=== PATIENT | male | born 1995 | race Caucasian/White ===

== ENCOUNTER 2017-06-20 17:42 | Emergency (ER) | payer SELFPAY ==
[2017-06-20 18:37] LABS: Absolute Lymphocytes (CBC) 2.4 K/uL (0.7-4.9); Absolute Monocytes 0.7 K/uL (0.1-1.3); Absolute Neutrophil 4.6 K/uL (1.8-8.0); Basophils % 1.2 % (0-1.3); Eosinophils % 0.8 % (0-4.4); Hematocrit 47.3 % (39.6-49.0); Lymphocytes % 30.6 % (15.3-44.8); MCH 28.7 pg (27.0-35.0); MCV 86.9 fL (80-100); Monocytes % 8.5 % (3.3-12.3); RBC Red Blood Cell Count 5.44 M/uL (4.33-5.43)
[2017-06-20 18:50] LABS: Bicarbonate 29 mEq/L (21-31); Glucose Level 92 mg/dL (65-120); Potassium 3.8 mEq/L (3.6-5.0); Sodium Level 141 mEq/L (135-145)
[2017-06-20 18:52] LABS: Protime INR 1.11
[2017-06-20 18:56] LABS: ALT/SGPT 11 IU/L (10-60); AST/SGOT 15 IU/L (10-42); Albumin 4.9 g/dL (3.2-5.5); Alkaline Phosphatase 66 IU/L (42-121); BUN Blood Urea Nitrogen 10 mg/dL (6-20); Bilirubin Direct 0.1 mg/dL (0-0.2); Bilirubin Total 0.5 mg/dL (0.3-1.2); Glomerular Filtration Rate > 90 mL/min (=/>90)
[2017-06-20 18:57] LABS: Alcohol Serum/Plasma < 10 mg/dl; Salicylates Level < 4.0 mg/dl (<30)
[2017-06-20 19:37] LABS: Urine Blood NEGATIVE (NEG); Urine Glucose NEGATIVE (NEG); Urine Protein 1+ (NEG); Urine Specific Gravity >1.030 (1.005-1.030)
[2017-06-20 19:48] LABS: Barbiturates NEGATIVE; Benzodiazepines NEGATIVE; Cocaine NEGATIVE; METHAMPHETAM NEGATIVE; Opiates NEGATIVE; Phencyclidine NEGATIVE; THC Cannibis POSITIVE
[2017-06-20] MEDS ORDERED: NICOTINE 21 MG/PAT TD ONE (21:15)
--- NOTE | 2017-06-20 23:06 | ER ---
Nurse's Notes [facility] Name: Krzysztof Palomino Age: 21 yrs Sex: Male : 1995 Arrival Date: 06/20/2017 Time: 17:44 Bed 5 Private MD: Diagnosis: Depression Presentation: 06/20 17:48 Presenting complaint: Patient states: I think I have been having manic episodes, mother la1 states that he is having thoughts that we are all conspiring against him. Pt denies SI/HI. Transition of care: patient was not received from another setting of care. Onset of symptoms was June 20, 2017. Care prior to arrival: None. 17:48 Method Of Arrival: Ambulatory la1 17:48 Acuity: JERAMY 3 la1 Historical: - Allergies: 17:50 BEE STINGS; la1 - Home Meds: 17:50 Zyrtec 10 mg Oral tab 1 tab once daily [Active]; la1 - PMHx: 17:50 ADD/ADHD; la1 - PSHx: 17:50 None; la1 - Immunization history:: Adult Immunizations up to date. - Social history:: Smoking status: Patient uses tobacco products, smokes two packs cigarettes per day. Screenin:32 Abuse screen: Denies threats or abuse. Denies injuries from another. Nutritional sv screening: No deficits noted. Tuberculosis screening: No symptoms or risk factors identified. Fall Risk None identified. Assessment: 18:10 General: Appears in no apparent distress. comfortable, well groomed, well developed, sg well nourished, Behavior is cooperative, anxious. Pain: Denies pain. Neuro: Level of Consciousness is awake, alert, obeys commands, Oriented to person, place, time, Station Inspector are equal bilaterally Moves all extremities. Gait is steady, Speech is normal, Facial symmetry appears normal, Pupils are PERRLA. Neuro: Reports episodes of eugenia per pt and pt family. Cardiovascular: Heart tones S1 S2 present Capillary refill is brisk in bilateral fingers Patient's skin is warm and dry. Respiratory: Airway is patent Respiratory effort is even, unlabored, Respiratory pattern is regular, symmetrical. GI: No signs and/or symptoms were reported involving the gastrointestinal system. : No signs and/or symptoms were reported regarding the genitourinary system. EENT: No signs and/or symptoms were reported regarding the EENT system. Derm: Skin is pink, warm \T\ dry. Musculoskeletal: No signs and/or symptoms reported regarding the musculoskeletal system. 19:23 Reassessment: Patient appears in no apparent distress at this time. No changes from ak1 previously documented assessment. Patient is alert, oriented x 3, equal unlabored respirations, skin warm/dry/pink. pt given water and is giving a urine sample. 20:00 Reassessment: [facility] called out for pt evaluation. . ak1 20:59 Reassessment: nicotine patch applied to right upper arm at 205406/20/17. ak1 22:49 Reassessment: [facility] screener at bedside. ak1 Vital Signs: 17:49 BP 121 / 74; Pulse 72; Resp 16; Temp 98.3; Pulse Ox 100% on R/A; Weight 54.43 kg; la1 Height 6 ft. 0 in. (182.88 cm); 23:01 BP 123 / 62; Pulse 90; Resp 18; Temp 97.8; Pulse Ox 100% on R/A; Pain 0/10; ak1 17:49 Body Mass Index 16.27 (54.43 kg, 182.88 cm) la1 ED Course: 17:44 Patient arrived in ED. as 17:49 Triage completed. la1 17:50 Arm band placed on right wrist. la1 17:53 Nils Black PA is PHCP. cp 17:53 Catrachito Kaplan MD is Attending Physician. cp 17:55 Aries Nagel, HERIBERTO is Primary Nurse. sg 18:20 Initial lab(s) drawn, by ok, sent to lab. Inserted saline lock: 20 gauge in right sv antecubital area, using aseptic technique. Blood collected. Flushed right antecubital with 5 ml normal saline. 18:32 Patient has correct armband on for positive identification. Bed in low position. Call sv light in reach. Adult w/ patient. Door closed. Head of bed elevated. 18:39 EKG done, by ED staff, reviewed by Nils MORE. dh3 18:40 Acetaminophen Sent. sv 18:40 Basic Metabolic Panel Sent. sv 18:40 CBC with Diff Sent. sv 18:40 ETOH Level Sent. sv 18:40 Hepatic Function Sent. sv 18:40 PT-INR Sent. sv 18:40 Ptt, Activated Sent. sv 18:40 Salicylate Sent. sv 19:07 Reagan Son MD is Attending Physician. 19:23 Chloe Thornton, RN is Primary Nurse. ak1 19:23 No provider procedures requiring assistance completed. ak1 19:34 Urine Drug Screen Sent. ak1 23:11 IV discontinued, intact, bleeding controlled, No redness/swelling at site. Pressure ak1 dressing applied. Administered Medications: 20:58 Drug: Nicoderm CQ 21 mg/24 hr 1 patches Route: Transdermal; Site: affected area; ak1 Outcome: 23:01 Condition: improved ak1 23:05 Discharge ordered by . cp 23:11 Discharged to home ambulatory, with family. ak1 23:11 Discharge instructions given to patient, family, Instructed on discharge instructions, follow up and referral plans. Demonstrated understanding of instructions, follow-up care. 23:15 Patient left the ED. Signatures: Clarissa Vang RN RN Aries Nagel RN RN Daniela Ellis RN RN Heavenly Winters Lee, RN RN laChloe Chatman RN RN ak1 Nils Black PA PA cp [place], [place] [address]
--- NOTE | 2017-06-20 23:06 | EDPHYS ---
Physician Documentation [facility] Name: Krzysztof Palomino Age: 21 yrs Sex: Male : 1995 Arrival Date: 06/20/2017 Time: 17:44 Bed 5 Private MD: ED Physician Reagan Son HPI: 06/20 18:15 This 21 yrs old Male presents to ER via Ambulatory with complaints of Bipolar cp Episode. 18:15 The patient presents to the emergency department with paranoia. cp 18:15 Onset: The symptoms/episode began/occurred 2 day(s) ago. cp 18:15 Past psychiatric history: Prior diagnosis: ADD/ADHD. Associated signs and symptoms: cp Pertinent positives; depression, paranoia, Pertinent negatives: chest pain, delusions, fever, hallucinations, homicidal ideation, palpitations, substance abuse, suicide ideation. Historical: - Allergies: 17:50 BEE STINGS; la1 - Home Meds: 17:50 Zyrtec 10 mg Oral tab 1 tab once daily [Active]; la1 - PMHx: 17:50 ADD/ADHD; la1 - PSHx: 17:50 None; la1 - Immunization history:: Adult Immunizations up to date. - Social history:: Smoking status: Patient uses tobacco products, smokes two packs cigarettes per day. ROS: 18:20 Constitutional: Negative for body aches, chills, fever, poor PO intake. cp 18:20 Eyes: Negative for injury, pain, redness, and discharge. cp 18:20 ENT: Negative for drainage from ear(s), ear pain, sore throat, difficulty swallowing, difficulty handling secretions. 18:20 Cardiovascular: Negative for chest pain, edema, palpitations. 18:20 Respiratory: Negative for cough, shortness of breath, wheezing. 18:20 Abdomen/GI: Negative for abdominal pain, nausea, vomiting, and diarrhea, black/tarry stool, rectal bleeding. 18:20 Neuro: Negative for altered mental status, headache, weakness. 18:20 Psych: Positive for depression, Negative for auditory hallucinations, visual hallucinations, homicidal ideation, suicide gesture, suicidal ideation. 18:20 All other systems are negative. Exam: 18:30 Constitutional: The patient appears in no acute distress, alert, awake, non-toxic, well cp developed, well nourished, unkempt. 18:30 Head/Face: Normocephalic, atraumatic. Eyes: Pupils equal round and reactive to light, cp extra-ocular motions intact. Lids and lashes normal. Conjunctiva and sclera are non-icteric and not injected. Cornea within normal limits. Periorbital areas with no swelling, redness, or edema. ENT: Nares patent. No nasal discharge, no septal abnormalities noted. Tympanic membranes are normal and external auditory canals are clear. Oropharynx with no redness, swelling, or masses, exudates, or evidence of obstruction, uvula midline. Mucous membranes moist. Neck: Trachea midline, no thyromegaly or masses palpated, and no cervical lymphadenopathy. Supple, full range of motion without nuchal rigidity, or vertebral point tenderness. No Meningismus. Chest/axilla: Normal chest wall appearance and motion. Nontender with no deformity. No lesions are appreciated. 18:30 Cardiovascular: Rate: normal, Rhythm: regular, Heart sounds: murmur, not appreciated, Edema: is not appreciated, JVD: is not appreciated. 18:30 Respiratory: the patient does not display signs of respiratory distress, Respirations: normal, no use of accessory muscles, no retractions, no splinting, no tachypnea, labored breathing, is not present, Breath sounds: are clear throughout, no decreased breath sounds, no stridor, no wheezing. 18:30 Abdomen/GI: Inspection: abdomen appears normal, Bowel sounds: active, all quadrants, Palpation: abdomen is soft and non-tender, in all quadrants. 18:30 Back: pain, is absent, ROM is normal. 18:30 Skin: cellulitis, is not appreciated, no rash present. 18:30 Neuro: Orientation: to person, place \T\ time. Mentation: is normal, Cerebellar function: is grossly normal, Motor: moves all fours, strength is normal, Sensation: is normal. 18:30 Psych: Behavior/mood is angry, Affect is animated, Patient has no thoughts/intents to harm self or others. Delusions/hallucinations are not present. 18:36 ECG was reviewed by the Attending Physician. cp Vital Signs: 17:49 BP 121 / 74; Pulse 72; Resp 16; Temp 98.3; Pulse Ox 100% on R/A; Weight 54.43 kg; la1 Height 6 ft. 0 in. (182.88 cm); 23:01 BP 123 / 62; Pulse 90; Resp 18; Temp 97.8; Pulse Ox 100% on R/A; Pain 0/10; ak1 17:49 Body Mass Index 16.27 (54.43 kg, 182.88 cm) la1 MDM: 17:53 Patient medically screened. cp 18:00 Differential diagnosis: drug withdrawal. acute psychotic break, depression, psychosis cp secondary to non-compliance. 23:03 Data reviewed: vital signs, nurses notes, lab test result(s), EKG, and as a result, I cp will discharge patient. 23:03 Counseling: I had a detailed discussion with the patient and/or guardian regarding: the cp historical points, exam findings, and any diagnostic results supporting the discharge/admit diagnosis, the need for outpatient follow up, a psychiatrist, to return to the emergency department if symptoms worsen or persist or if there are any questions or concerns that arise at home. ED course: VSS. Patient evaluated by [facility] and felt to be stable for discharge to home with outpatient clinic f/u. 06/20 18:14 Order name: Acetaminophen cp 06/20 18:14 Order name: Basic Metabolic Panel cp 06/20 18:14 Order name: CBC with Diff cp 06/20 18:14 Order name: ETOH Level cp 06/20 18:14 Order name: Hepatic Function cp 06/20 18:14 Order name: PT-INR cp 06/20 18:14 Order name: Ptt, Activated cp 06/20 18:14 Order name: Salicylate cp 06/20 18:14 Order name: Urine Drug Screen cp 06/20 18:46 Order name: CBC with Automated Diff; Complete Time: 19:06 EDMS 06/20 19:06 Interpretation: Normal except: RBC 5.44; RDW 15.3. cp 06/20 18:50 Order name: Basic Metabolic Panel; Complete Time: 19:06 EDMS 06/20 19:06 Interpretation: Reviewed. cp 06/20 18:57 Order name: Liver (Hepatic) Function; Complete Time: 19:06 EDMS 06/20 19:07 Interpretation: Within normal limits. cp 06/20 18:57 Order name: Acetaminophen Level; Complete Time: 19:06 EDMS 06/20 19:06 Interpretation: Reviewed. cp 06/20 18:57 Order name: Alcohol Serum/Plasma; Complete Time: 19:06 EDMS 06/20 18:14 Order name: EKG; Complete Time: 18:15 cp 06/20 18:14 Order name: EKG - Nurse/Tech; Complete Time: 18:29 06/20 18:14 Order name: IV Saline Lock; Complete Time: 18:29 06/20 18:14 Order name: Labs collected and sent; Complete Time: 18:29 06/20 18:14 Order name: Urine Dipstick-Ancillary (obtain specimen); Complete Time: 19:34 06/20 18:57 Order name: Salicylates Level; Complete Time: 19:06 EDMS 06/20 18:58 Order name: Protime (+INR); Complete Time: 19:06 EDMS 06/20 19:06 Interpretation: Abnormal: PT 13.1. 06/20 18:59 Order name: PTT, Activated Partial Thromb; Complete Time: 19:06 EDMS 06/20 19:35 Order name: Urine Dipstick--Ancillary (enter results) em1 06/20 19:38 Order name: Urine Dipstick-Ancillary; Complete Time: 20:52 EDMS 06/20 20:52 Interpretation: Normal except: USPGR >1.030; UPROT 1+. 06/20 19:48 Order name: Urine Drug Screen; Complete Time: 20:52 EDMS 06/20 20:52 Interpretation: Normal except: THC POSITIVE. cp EC:36 Rate is 54 beats/min. Rhythm is regular. OR interval is normal. QRS interval is normal. cp QT interval is normal. No ST changes noted. Interpreted by me. Reviewed by me. Administered Medications: 20:58 Drug: Nicoderm CQ 21 mg/24 hr 1 patches Route: Transdermal; Site: affected area; ak1 Disposition: 06/20/17 23:05 Discharged to Home. Impression: Depression. - Condition is Stable. - Discharge Instructions: Depression, Adult. - Work release form, Medication Reconciliation Form, Thank You Letter, Antibiotic Education, Prescription Opioid Use form. - Follow up: Private Physician; When: [facility] for reevaluation; Reason: Recheck today's complaints. - Problem is new. - Symptoms are unchanged. Addendum: 06/24/2017 07:07 Co-signature as Attending Physician, Reagan Son MD I agree with the assessment and w a plan of care. Signatures: Dispatcher [employer] Daniela Maria RN RN fc Attema, Lee, RN RN la1 Chloe Thornton RN RN ak1 Nils Black, Reagan Sanz cp, MD MD wa
--- NOTE | 2017-06-21 07:23 | EKG ---
Test Date: 2017-06-20 Test Time: 18:30:17 Adjunct Faculty Mathematics Department: [facility] MEASUREMENT RESULTS: Intervals: Rate: 54 WV: 130 QRSD: 82 QT: 392 QTc: 371 Crosby: P: 56 WV: 130 QRS: 91 T: 75 INTERPRETIVE STATEMENTS: Sinus bradycardia with sinus arrhythmia Rightward axis Borderline ECG Compared to ECG 01/17/2017 20:52:04 Sinus rhythm no longer present Electronically Signed On 06-21-17 07:21:53 CDT by Julian Reyes
== END 2017-06-20 23:15 | disposition home or self-care (01) ==
LOC: ER 17:42
DX: F32.9 Major depressive disorder, single episode, unspecified (principal); F90.9 Attention-deficit hyperactivity disorder, unspecified type; F17.210 Nicotine dependence, cigarettes, uncomplicated; Z91.030 Bee allergy status
CPT/HCPCS: 36415; 80048; 80076; 80307; 80320; 80329; 81003; 85025; 85610; 85730; 93005; 99284

== ENCOUNTER 2017-06-21 07:30 | Emergency (ER) | payer SELFPAY ==
--- NOTE | 2017-06-21 08:07 | EDPHYS ---
Physician Documentation [facility] Name: Krzysztof Palomino Age: 21 yrs Sex: Male : 1995 Arrival Date: 06/21/2017 Time: 07:30 Bed 5 Private MD: ED Physician Nils Bingham HPI: 06/21 07:56 This 21 yrs old Male presents to ER via Ambulatory with complaints of michelle Hallucinations, Anxiety. 07:56 The patient presents to the emergency department with anxiety, paranoia, a history of michelle substance abuse, Type: marijuana. Onset: The symptoms/episode began/occurred 2 day(s) ago. Past psychiatric history: Prior diagnosis: bipolar disorder, Psychiatric medications include: none. Associated signs and symptoms: The patient has no apparent associated signs or symptoms. Severity of symptoms: At their worst the symptoms were mild in the emergency department the symptoms are unchanged. The patient has not experienced similar symptoms in the past. no diagnosis. Historical: - Allergies: 07:36 BEE STINGS; ss - Home Meds: 07:36 Zyrtec 10 mg Oral tab 1 tab once daily [Active]; ss - PMHx: 07:36 ADD/ADHD; ss - PSHx: 07:36 None; ss - Immunization history:: Adult Immunizations up to date. - Social history:: Smoking status: Patient uses tobacco products, smokes two packs cigarettes per day. Patient/guardian denies using alcohol, street drugs. - Family history:: not pertinent. ROS: 07:56 Constitutional: Negative for fever, chills, and weight loss, Eyes: Negative for injury, michelle pain, redness, and discharge, ENT: Negative for injury, pain, and discharge, Neck: Negative for injury, pain, and swelling, Cardiovascular: Negative for chest pain, palpitations, and edema, Respiratory: Negative for shortness of breath, cough, wheezing, and pleuritic chest pain, Abdomen/GI: Negative for abdominal pain, nausea, vomiting, diarrhea, and constipation, Back: Negative for injury and pain, : Negative for injury, bleeding, discharge, and swelling, MS/Extremity: Negative for injury and deformity, Skin: Negative for injury, rash, and discoloration, Neuro: Negative for headache, weakness, numbness, tingling, and seizure. Exam: 07:56 Constitutional: This is a well developed, well nourished patient who is awake, alert, michelle and in no acute distress. Head/Face: Normocephalic, atraumatic. Eyes: Pupils equal round and reactive to light, extra-ocular motions intact. Lids and lashes normal. Conjunctiva and sclera are non-icteric and not injected. Cornea within normal limits. Periorbital areas with no swelling, redness, or edema. ENT: Nares patent. No nasal discharge, no septal abnormalities noted. Tympanic membranes are normal and external auditory canals are clear. Oropharynx with no redness, swelling, or masses, exudates, or evidence of obstruction, uvula midline. Mucous membranes moist. Neck: Trachea midline, no thyromegaly or masses palpated, and no cervical lymphadenopathy. Supple, full range of motion without nuchal rigidity, or vertebral point tenderness. No Meningismus. Chest/axilla: Normal chest wall appearance and motion. Nontender with no deformity. No lesions are appreciated. Cardiovascular: Regular rate and rhythm with a normal S1 and S2. No gallops, murmurs, or rubs. Normal PMI, no JVD. No pulse deficits. Respiratory: Lungs have equal breath sounds bilaterally, clear to auscultation and percussion. No rales, rhonchi or wheezes noted. No increased work of breathing, no retractions or nasal flaring. Abdomen/GI: Soft, non-tender, with normal bowel sounds. No distension or tympany. No guarding or rebound. No evidence of tenderness throughout. Back: No spinal tenderness. No costovertebral tenderness. Full range of motion. Male : Normal genitalia with no discharge or lesions. Skin: Warm, dry with normal turgor. Normal color with no rashes, no lesions, and no evidence of cellulitis. MS/ Extremity: Pulses equal, no cyanosis. Neurovascular intact. Full, normal range of motion. Neuro: Awake and alert, GCS 15, oriented to person, place, time, and situation. Cranial nerves II-XII grossly intact. Motor strength 5/5 in all extremities. Sensory grossly intact. Cerebellar exam normal. Normal gait. Vital Signs: 07:36 BP 117 / 80; Pulse 70; Resp 20; Pulse Ox 98% on R/A; Weight 54.43 kg; Height 6 ft. 0 ss in. (182.88 cm); Pain 0/10; 07:40 Temp 98.1(TE); ss 07:36 Body Mass Index 16.27 (54.43 kg, 182.88 cm) MDM: 07:39 Patient medically screened. [facility] 06/21 07:45 Order name: EKG; Complete Time: 07:46 michelle Administered Medications: 08:08 CANCELLED (per Dr. Bingham): NS 0.9% 1000 ml IV at 1 bolus Per protocol; 1000 mL bolus ph 08:54 Drug: Nicoderm CQ 21 mg/24 hr 1 patches Route: Transdermal; Site: affected area; hb 09:30 Drug: Ativan 2 mg Route: PO; ss 09:45 Follow up: Response: No adverse reaction hb Disposition: 06/21/17 08:06 Transfer ordered to [facility]. Diagnosis are Bipolar disorder, Suicidal ideations. - Reason for transfer: Higher level of care. - Accepting physician is to [facility]. - Condition is Stable. - Problem is new. - Symptoms have improved. Signatures: Dispatcher [employer] EDAK Nils Bingham MD MD cha Smirch, Shelby, RN RN Teri Holcomb RN RN ph Sudha Read, RN RN hb Corrections: (The following items were deleted from the chart) 08:08 07:45 NS 0.9% 1000 ml IV at 1 bolus Per protocol; 1000 mL bolus ordered. michelle ph 08:08 08:08 NS 0.9% 1000 ml IV at 1 bolus Per protocol; 1000 mL bolus ordered. ph ph 08:10 07:45 EKG - Nurse/Tech ordered. [facility] ph 08:11 07:45 IV Saline Lock ordered. [facility] ph 08:11 07:45 Labs collected and sent ordered. [facility] ph 08:11 07:45 Urine Dipstick-Ancillary ordered. [facility] ph
--- NOTE | 2017-06-21 08:07 | ER ---
Nurse's Notes [facility] Name: Krzysztof Palomino Age: 21 yrs Sex: Male : 1995 Arrival Date: 06/21/2017 Time: 07:30 Bed 5 Private MD: Diagnosis: Bipolar disorder;Suicidal ideations Presentation: 06/21 07:34 Presenting complaint: Mother states: "his delusions have gotten worse and he is having ss hallucinations and he wants us to hurt him." Pt reports suicidal ideations. Transition of care: patient was not received from another setting of care. Onset of symptoms was June 18, 2017. Care prior to arrival: None. 07:34 Method Of Arrival: Ambulatory ss 07:34 Acuity: JERAMY 2 ss Historical: - Allergies: 07:36 BEE STINGS; ss - Home Meds: 07:36 Zyrtec 10 mg Oral tab 1 tab once daily [Active]; ss - PMHx: 07:36 ADD/ADHD; ss - PSHx: 07:36 None; ss - Immunization history:: Adult Immunizations up to date. - Social history:: Smoking status: Patient uses tobacco products, smokes two packs cigarettes per day. Patient/guardian denies using alcohol, street drugs. - Family history:: not pertinent. Screenin:11 Abuse screen: Denies threats or abuse. Denies injuries from another. Nutritional ph screening: No deficits noted. Tuberculosis screening: No symptoms or risk factors identified. Fall Risk None identified. Assessment: 07:38 Reassessment: When asked if he has a plan to hurt himself, pt states, "Just waiting on ss whatever kills me pretty much. Probably cigarettes.". 08:11 General: Appears in no apparent distress. Behavior is calm, cooperative. Pain: Denies ph pain. Neuro: Level of Consciousness is awake, alert, obeys commands, Oriented to person, place, time, situation, Pupils are PERRLA. Cardiovascular: Capillary refill < 3 seconds Patient's skin is warm and dry. Respiratory: Airway is patent Respiratory effort is even, unlabored, Respiratory pattern is regular, symmetrical, Breath sounds are clear bilaterally. GI: No signs and/or symptoms were reported involving the gastrointestinal system. : No signs and/or symptoms were reported regarding the genitourinary system. EENT: No signs and/or symptoms were reported regarding the EENT system. Derm: No signs and/or symptoms reported regarding the dermatologic system. Musculoskeletal: No signs and/or symptoms reported regarding the musculoskeletal system. 08:24 Reassessment: Report called to HERIBERTO Mittal at [facility]. hb Vital Signs: 07:36 BP 117 / 80; Pulse 70; Resp 20; Pulse Ox 98% on R/A; Weight 54.43 kg; Height 6 ft. 0 ss in. (182.88 cm); Pain 0/10; 07:40 Temp 98.1(TE); ss 07:36 Body Mass Index 16.27 (54.43 kg, 182.88 cm) ED Course: 07:30 Patient arrived in ED. as 07:35 Triage completed. ss 07:36 Arm band placed on right wrist. ss 07:39 Nils Bingham MD is Attending Physician. [facility] 07:45 Patient has correct armband on for positive identification. Bed in low position. Call hb light in reach. Side rails up X 1. Adult w/ patient. 08:30 Sudha Read, HERIBERTO is Primary Nurse. hb 09:40 No provider procedures requiring assistance completed. Patient did not have IV access hb during this emergency room visit. Administered Medications: 08:08 CANCELLED (per Dr. Bingham): NS 0.9% 1000 ml IV at 1 bolus Per protocol; 1000 mL bolus ph 08:54 Drug: Nicoderm CQ 21 mg/24 hr 1 patches Route: Transdermal; Site: affected area; hb 09:30 Drug: Ativan 2 mg Route: PO; ss 09:45 Follow up: Response: No adverse reaction hb Outcome: 08:06 ER care complete, transfer ordered by . [facility] 09:40 Transferred to [facility]. hb 09:40 Condition: stable 09:40 Instructed on the need for transfer, Demonstrated understanding of instructions. 09:43 Patient left the ED. hb Signatures: Nils Bingham MD MD cha Martinez, Amelia as Smirch, Shelby, RN RN Teri Holcomb RN RN ph Sudha Read RN RN hb
[2017-06-21] MEDS ORDERED: NA CHLORIDE 0.9% 1,000 ML ONE (08:11)
[2017-06-21] MEDS ORDERED: NICOTINE 21 MG/PAT TD ONE (09:11)
[2017-06-21] MEDS ORDERED: LORAZEPAM 1 MG TABLET ONE (09:48)
== END 2017-06-21 09:43 | disposition short-term general hospital (02) ==
LOC: ER 07:30
DX: R45.851 Suicidal ideations (principal); Z91.030 Bee allergy status; F17.210 Nicotine dependence, cigarettes, uncomplicated
CPT/HCPCS: 99285; J7030

== ENCOUNTER 2017-06-27 14:17 | Emergency (ER) | payer SELFPAY ==
[2017-06-27 15:20] LABS: Absolute Lymphocytes (CBC) 2.5 K/uL (0.7-4.9); Absolute Monocytes 0.5 K/uL (0.1-1.3); Absolute Neutrophil 3.7 K/uL (1.8-8.0); Basophils % 0.8 % (0-1.3); Eosinophils % 0.7 % (0-4.4); Hematocrit 43.9 % (39.6-49.0); Lymphocytes % 36.5 % (15.3-44.8); MCH 28.4 pg (27.0-35.0); MCV 87.3 fL (80-100); Monocytes % 7.6 % (3.3-12.3); RBC Red Blood Cell Count 5.03 M/uL (4.33-5.43)
[2017-06-27 15:24] LABS: Protime INR 1.07
[2017-06-27 15:28] LABS: Bicarbonate 27 mEq/L (21-31); Glucose Level 100 mg/dL (65-120); Potassium 3.7 mEq/L (3.6-5.0); Sodium Level 139 mEq/L (135-145)
[2017-06-27 15:34] LABS: ALT/SGPT 11 IU/L (10-60); AST/SGOT 15 IU/L (10-42); Albumin 4.4 g/dL (3.2-5.5); Alkaline Phosphatase 55 IU/L (42-121); BUN Blood Urea Nitrogen 17 mg/dL (6-20); Bilirubin Direct 0.1 mg/dL (0-0.2); Bilirubin Total 0.6 mg/dL (0.3-1.2); Glomerular Filtration Rate > 90 mL/min (=/>90); Protein, Total 7.1 g/dL (6.0-8.3)
[2017-06-27 15:43] LABS: Alcohol Serum/Plasma < 10 mg/dl; Salicylates Level < 4.0 mg/dl (<30)
[2017-06-27 15:44] LABS: Urine Blood NEGATIVE (NEG); Urine Glucose NEGATIVE (NEG); Urine Protein NEGATIVE (NEG); Urine Specific Gravity 1.025 (1.005-1.030)
[2017-06-27 15:46] LABS: Barbiturates NEGATIVE; Benzodiazepines NEGATIVE; Cocaine NEGATIVE; METHAMPHETAM NEGATIVE; Opiates NEGATIVE; Phencyclidine NEGATIVE; THC Cannibis POSITIVE
--- NOTE | 2017-06-27 18:16 | EDPHYS ---
Physician Documentation [facility] Name: Krzysztof Palomino Age: 21 yrs Sex: Male : 1995 Arrival Date: 06/27/2017 Time: 14:20 Bed 17 Private MD: ED Physician Severo Brown HPI: 06/27 16:28 This 21 yrs old Male presents to ER via Ambulatory with complaints of Psych jr8 Problem. 16:28 Onset: The symptoms/episode began/occurred gradually. Associated signs and symptoms: jr8 The patient has no apparent associated signs or symptoms. Severity of symptoms: At their worst the symptoms were moderate. The patient has experienced a previous episode. The patient has been recently seen by a physician:. Mother of patient stated that child has for some time had multiple suicide attempts in past. Has been depressed as well. Recently over the past week was having large mood swings. Stated that he would be in position crying one moment and then up and yelling the next. Stated that he had never been this bad before. Stated that he was brought here. Medically cleared and then [facility] to [facility]. [facility] on [facility] from [facility] with zyprexa and depakote. Mom brought patient back because he is not any better. Patient denies SI/HI. Historical: - Allergies: 14:34 BEE STINGS; hb - Home Meds: 14:34 Depakote 500 mg Oral TbEC 1 tab 2 times per day [Active]; Zyrtec 10 mg Oral tab 1 tab hb once daily [Active]; olanzapine 10 mg oral tab 1 tab once daily [Active]; - PMHx: 14:34 ADD/ADHD; Bipolar disorder; hb - PSHx: 14:34 None; hb - Immunization history:: Adult Immunizations up to date. - Social history:: Smoking status: Patient uses tobacco products, smokes two packs cigarettes per day. ROS: 16:31 Eyes: Negative for injury, pain, redness, and discharge, ENT: Negative for injury, jr8 pain, and discharge, Neck: Negative for injury, pain, and swelling, Cardiovascular: Negative for chest pain, palpitations, and edema, Respiratory: Negative for shortness of breath, cough, wheezing, and pleuritic chest pain, Abdomen/GI: Negative for abdominal pain, nausea, vomiting, diarrhea, and constipation, Back: Negative for injury and pain, MS/Extremity: Negative for injury and deformity, Skin: Negative for injury, rash, and discoloration, Neuro: Negative for headache, weakness, numbness, tingling, and seizure. 16:31 Psych: Positive for depression, Negative for auditory hallucinations, visual hallucinations, homicidal ideation, suicide gesture, suicidal ideation. Exam: 16:31 Head/Face: Normocephalic, atraumatic. Eyes: Pupils equal round and reactive to light, jr8 extra-ocular motions intact. Lids and lashes normal. Conjunctiva and sclera are non-icteric and not injected. Cornea within normal limits. Periorbital areas with no swelling, redness, or edema. ENT: Nares patent. No nasal discharge, no septal abnormalities noted. Tympanic membranes are normal and external auditory canals are clear. Oropharynx with no redness, swelling, or masses, exudates, or evidence of obstruction, uvula midline. Mucous membranes moist. Neck: Trachea midline, no thyromegaly or masses palpated, and no cervical lymphadenopathy. Supple, full range of motion without nuchal rigidity, or vertebral point tenderness. No Meningismus. Cardiovascular: Regular rate and rhythm with a normal S1 and S2. No gallops, murmurs, or rubs. Normal PMI, no JVD. No pulse deficits. Respiratory: Lungs have equal breath sounds bilaterally, clear to auscultation and percussion. No rales, rhonchi or wheezes noted. No increased work of breathing, no retractions or nasal flaring. Abdomen/GI: Soft, non-tender, with normal bowel sounds. No distension or tympany. No guarding or rebound. No evidence of tenderness throughout. Back: No spinal tenderness. No costovertebral tenderness. Full range of motion. Skin: Warm, dry with normal turgor. Normal color with no rashes, no lesions, and no evidence of cellulitis. MS/ Extremity: Pulses equal, no cyanosis. Neurovascular intact. Full, normal range of motion. Neuro: Awake and alert, GCS 15, oriented to person, place, time, and situation. Cranial nerves II-XII grossly intact. Motor strength 5/5 in all extremities. Sensory grossly intact. Cerebellar exam normal. Normal gait. 16:31 Psych: Behavior/mood is depressed, Affect is flat, Oriented to person, place, time, Patient has no thoughts/intents to harm self or others. Judgement / Insight is normal. Memory is normal. Delusions/hallucinations are not present. Patient with very flat affect. Keeps saying that he is not any better. That he needs to be on Bipolar medication and not antipsychotics . Vital Signs: 14:31 BP 146 / 108; Pulse 99; Resp 20; Temp 99; Pulse Ox 100% on R/A; Pain 5/10; hb 18:51 BP 127 / 75; Pulse 81; Resp 18; Temp 98.1(O); Pulse Ox 100% on R/A; hj 19:28 BP 128 / 76; Pulse 83; Resp 18; Pulse Ox 99% ; Pain 0/10; jl3 20:28 BP 117 / 70; Pulse 72; Resp 18; Pulse Ox 100% ; Pain 0/10; jl3 MDM: 14:26 Patient medically screened. jr8 18:13 Data reviewed: vital signs, nurses notes, lab test result(s), EKG. Data interpreted: jr8 Pulse oximetry: on room air is 100 %. Interpretation: normal. Counseling: I had a detailed discussion with the patient and/or guardian regarding: the historical points, exam findings, and any diagnostic results supporting the discharge/admit diagnosis, lab results, the need to transfer to another facility, [facility] does not immediately have the required specialist. ED course: [facility] consulted where patient had just left after being evaluated for psychiatric consult. [facility] accepted again for voluntary admission . 06/27 14:26 Order name: Acetaminophen; Complete Time: 16:06/27 14:26 Order name: Basic Metabolic Panel; Complete Time: 16:06/27 14:26 Order name: CBC with Diff; Complete Time: 15:30 06/27 14:26 Order name: ETOH Level; Complete Time: 16:06/27 14:26 Order name: Hepatic Function; Complete Time: 16:06/27 14: Order name: PT-INR; Complete Time: 16:06/27 14:26 Order name: Ptt, Activated; Complete Time: 16:06/27 14:26 Order name: Salicylate; Complete Time: 16:06/27 14:26 Order name: Urine Drug Screen; Complete Time: 16:05 jr8 06/27 14:26 Order name: EKG; Complete Time: 14:27 jr8 06/27 15:38 Order name: Urine Dipstick--Ancillary (enter results) ag 06/27 15:38 Order name: Urine Dipstick-Ancillary; Complete Time: 16:05 EDCA 06/27 16:31 Order name: Depakote; Complete Time: 17:00 jr8 06/27 14:26 Order name: EKG - Nurse/Tech; Complete Time: 15:28 jr8 06/27 14:26 Order name: Labs collected and sent; Complete Time: 15:28 jr8 06/27 14:26 Order name: Urine Dipstick-Ancillary (obtain specimen); Complete Time: 15:29 jr8 Administered Medications: 20:10 Not Given (Patient Refused): Ativan 2 mg PO once jl3 Disposition: 06/27/17 18:15 Transfer ordered to [facility]. Diagnosis are Manic episode, Major depressive disorder, recurrent. - Reason for transfer: Higher level of care. - Accepting physician is [facility]. - Condition is Stable. - Problem is new. - Symptoms are unchanged. Addendum: 06/29/2017 06:59 Co-signature as Attending Physician, Severo Brown MD I agree with the assessment and k dr plan of care. Signatures: Dispatcher [employer] Severo Laguna MD MD [facility] Mason Marsh PA PA jr8 Michel Suggs, HOUSING SPECIALIST HOUSING SPECIALIST jl3 Sudha Read, HERIBERTO RN Corrections: (The following items were deleted from the chart) 06/27 15:28 14:26 IV Saline Lock ordered. jr8 hj
--- NOTE | 2017-06-27 18:16 | ER ---
Nurse's Notes [facility] Name: Krzysztof Palomino Age: 21 yrs Sex: Male : 1995 Arrival Date: 06/27/2017 Time: 14:20 Bed 17 Private MD: Diagnosis: Manic episode;Major depressive disorder, recurrent Presentation: 06/27 14:28 Presenting complaint: Patient states: Having violent outbursts and extreme anxiety that hb started an hour after he was discharged from [facility] 2 days ago. Reports he wants to , but wants his parents to do it. Denies homicidal thoughts. Transition of care: patient was not received from another setting of care. Onset of symptoms was June 25, 2017. Care prior to arrival: None. 14:28 Method Of Arrival: Ambulatory 14:28 Acuity: JERAMY 2 hb Triage Assessment: 14:41 General: Appears in no apparent distress. uncomfortable, Behavior is cooperative, hj appropriate for age, anxious. Pain: Denies pain. EENT: No signs and/or symptoms were reported regarding the EENT system. Neuro: Level of Consciousness is awake, alert, obeys commands, Oriented to person, place, time, situation, Appropriate for age. Cardiovascular: Capillary refill < 3 seconds Patient's skin is warm and dry. Respiratory: Airway is patent Respiratory effort is even, unlabored, Respiratory pattern is regular, symmetrical. GI: No signs and/or symptoms were reported involving the gastrointestinal system. : No signs and/or symptoms were reported regarding the genitourinary system. Derm: No signs and/or symptoms reported regarding the dermatologic system. Musculoskeletal: No signs and/or symptoms reported regarding the musculoskeletal system. Historical: - Allergies: 14:34 BEE STINGS; hb - Home Meds: 14:34 Depakote 500 mg Oral TbEC 1 tab 2 times per day [Active]; Zyrtec 10 mg Oral tab 1 tab hb once daily [Active]; olanzapine 10 mg oral tab 1 tab once daily [Active]; - PMHx: 14:34 ADD/ADHD; Bipolar disorder; hb - PSHx: 14:34 None; hb - Immunization history:: Adult Immunizations up to date. - Social history:: Smoking status: Patient uses tobacco products, smokes two packs cigarettes per day. Screenin:41 Abuse screen: Denies threats or abuse. Denies injuries from another. Nutritional hj screening: No deficits noted. Tuberculosis screening: No symptoms or risk factors identified. Fall Risk None identified. Assessment: 14:55 General: Appears in no apparent distress. uncomfortable, Behavior is agitated, hj uncooperative. General: "I dont want any blood draw, i can give urine, I think im going back to [facility]". Pain: Denies pain. Neuro: Level of Consciousness is awake, alert, obeys commands, Oriented to person, place, time, situation, Appropriate for age. Cardiovascular: Capillary refill < 3 seconds Patient's skin is warm and dry. Respiratory: Airway is patent Respiratory effort is even, unlabored, Respiratory pattern is regular, symmetrical. GI: No signs and/or symptoms were reported involving the gastrointestinal system. : No signs and/or symptoms were reported regarding the genitourinary system. EENT: No signs and/or symptoms were reported regarding the EENT system. Derm: No signs and/or symptoms reported regarding the dermatologic system. Musculoskeletal: No signs and/or symptoms reported regarding the musculoskeletal system. 14:56 Reassessment: provider aware, pt refused blood work up, per provider, if pt wants to be hj transferred to [facility], he should be medically cleared; pt and family aware;. 15:14 Reassessment: pt agreed for blood draw, refused IV insertion; blood drawn and sent to hj lab;. 15:45 Reassessment: provider in room with pt and family;. hj 16:56 Reassessment: Patient's Mom approached nurse's station aggressively stating she is ae1 upset and does not understand why the curtain in her's son's exam room must remain open. Provided patient teaching on safety and monitoring, Mom verbalized she disagreed and states it is discrimination. Mom returned to exam room with patient, curtain remains open. 17:29 Reassessment: Patient and/or family updated on plan of care and expected duration. Pain hj level reassessed. Patient is alert, oriented x 3, equal unlabored respirations, skin warm/dry/pink. family in room;. 18:50 Reassessment: trying to call report to [facility] ([phone]);. hj 18:55 Reassessment: was told staff is on the middle of shift change; to call back around 7:30 hj pm;. 19:27 General: Assumed care from Bairon. RN. Visited pt and family in room. Pt wants to go jl3 outside to smoke. Will wait for transfer. Pt mildly agitated but family helpful.. 20:22 General: Report called to [facility], ambulance called, patient and family informed. Pt jl3 agitated but refused Ativan r/t drowsiness. Pt refused nicotine patch. Family remains in room.. Psych: 14:50 Subjective: Patient's mood is angry, irritable, Delusions are denied, Hallucinations hj are denied Having thoughts of. Objective: Patient is irritable, Speech is normal, Affect is. Interventions: Patient placed in hospital gown. Searched person for dangerous items. Belonging list filled out. Restraints: Patient placed in soft restraints as ordered by physician. Patient's physical safety, cardiac and respiratory status will continue to be monitored while in restraints. Suicide Risk Assessment: Sad Person Scale: Sex of patient: Male: Score 1 point. Age of patient: Score 1 point if patient 15-34. Depression: Previous Attempt: Substance Abuse: Rational Thinking: Score 0 point if patient has rational thinking. Social Support: Score 0 if social support is present/available. Organized Plan: Relationship: Chronic Sickness:. Safety Checks: Personal items have been removed. Door is open. Visitors are present. Commitment: Patient will be a voluntary commitment. 14:50 Patient uses marijuana. Vital Signs: 14:31 BP 146 / 108; Pulse 99; Resp 20; Temp 99; Pulse Ox 100% on R/A; Pain 5/10; hb 18:51 BP 127 / 75; Pulse 81; Resp 18; Temp 98.1(O); Pulse Ox 100% on R/A; hj 19:28 BP 128 / 76; Pulse 83; Resp 18; Pulse Ox 99% ; Pain 0/10; jl3 20:28 BP 117 / 70; Pulse 72; Resp 18; Pulse Ox 100% ; Pain 0/10; jl3 ED Course: 14:20 Patient arrived in ED. mr 14:26 Mason Marsh PA is PHCP. jr8 14:26 Severo Brown MD is Attending Physician. jr8 14:30 Safety Checks: Personal items have been removed The door is open or patient has been hj placed in a hallway bed/chair. A family member and/or friend is present and encouraged to stay. 14:31 Triage completed. hb 14:31 Arm band placed on right wrist. hb 14:31 Patient has correct armband on for positive identification. Placed in gown. Bed in low hj position. Call light in reach. Side rails up X 1. 14:40 Bairon Yu, RN is Primary Nurse. hj 14:45 Safety Checks: Personal items have been removed The door is open or patient has been hj placed in a hallway bed/chair. A family member and/or friend is present and encouraged to stay. 14:49 No provider procedures requiring assistance completed. hj 14:54 EKG done, by gyroscopic engineering technician. reviewed by Mason MORE. at1 15:00 Safety Checks: Personal items have been removed The door is open or patient has been hj placed in a hallway bed/chair. A family member and/or friend is present and encouraged to stay. 15:15 Safety Checks: Personal items have been removed The door is open or patient has been hj placed in a hallway bed/chair. A family member and/or friend is present and encouraged to stay. 15:30 Safety Checks: Personal items have been removed The door is open or patient has been hj placed in a hallway bed/chair. A family member and/or friend is present and encouraged to stay. 15:45 Safety Checks: Personal items have been removed The door is open or patient has been hj placed in a hallway bed/chair. A family member and/or friend is present and encouraged to stay. 16:00 Safety Checks: Personal items have been removed The door is open or patient has been hj placed in a hallway bed/chair. A family member and/or friend is present and encouraged to stay. 16:15 Safety Checks: Personal items have been removed The door is open or patient has been hj placed in a hallway bed/chair. A family member and/or friend is present and encouraged to stay. 16:30 Safety Checks: Personal items have been removed The door is open or patient has been hj placed in a hallway bed/chair. A family member and/or friend is present and encouraged to stay. 16:45 Safety Checks: Personal items have been removed The door is open or patient has been hj placed in a hallway bed/chair. A family member and/or friend is present and encouraged to stay. 17:00 Safety Checks: Personal items have been removed The door is open or patient has been hj placed in a hallway bed/chair. A family member and/or friend is present and encouraged to stay. 17:15 Safety Checks: Personal items have been removed The door is open or patient has been hj placed in a hallway bed/chair. A family member and/or friend is present and encouraged to stay. 17:28 Safety Checks: Personal items have been removed The door is open or patient has been hj placed in a hallway bed/chair. A family member and/or friend is present and encouraged to stay. 17:45 Safety Checks: Personal items have been removed The door is open or patient has been hj placed in a hallway bed/chair. A family member and/or friend is present and encouraged to stay. 18:00 Safety Checks: Personal items have been removed The door is open or patient has been hj placed in a hallway bed/chair. A family member and/or friend is present and encouraged to stay. 18:15 Safety Checks: Personal items have been removed The door is open or patient has been hj placed in a hallway bed/chair. A family member and/or friend is present and encouraged to stay. 18:30 Safety Checks: Personal items have been removed The door is open or patient has been hj placed in a hallway bed/chair. A family member and/or friend is present and encouraged to stay. 18:45 Safety Checks: Personal items have been removed The door is open or patient has been hj placed in a hallway bed/chair. A family member and/or friend is present and encouraged to stay. 19:00 Safety Checks: Personal items have been removed The door is open or patient has been hj placed in a hallway bed/chair. A family member and/or friend is present and encouraged to stay. 19:00 Report given to ELEN Benson;. heydi 19:15 Safety Checks: Personal items have been removed The door is open or patient has been jl3 placed in a hallway bed/chair. A family member and/or friend is present and encouraged to stay. 19:30 Safety Checks: Personal items have been removed The door is open or patient has been jl3 placed in a hallway bed/chair. A family member and/or friend is present and encouraged to stay. 19:45 Safety Checks: Personal items have been removed The door is open or patient has been jl3 placed in a hallway bed/chair. A family member and/or friend is present and encouraged to stay. 20:00 Safety Checks: Personal items have been removed The door is open or patient has been jl3 placed in a hallway bed/chair. A family member and/or friend is present and encouraged to stay. 20:15 Safety Checks: Personal items have been removed The door is open or patient has been jl3 placed in a hallway bed/chair. A family member and/or friend is present and encouraged to stay Pt more agitated than at shift change. Refused Ativan, states will cause too much drowsiness. 20:34 Safety Checks: Personal items have been removed The door is open or patient has been jl3 placed in a hallway bed/chair. A family member and/or friend is present and encouraged to stay Pt calmed visibly after refusing Ativan. EMS arrived, pt helped strap self to [facility], family departed with pt. 20:34 Patient did not have IV access during this emergency room visit. jl3 Administered Medications: 20:10 Not Given (Patient Refused): Ativan 2 mg PO once jl3 Outcome: 18:15 ER care complete, transfer ordered by MD. montero 20:33 Transferred by ground EMS to [facility]. jl3 20:33 Condition: good 20:33 Discharge instructions given to patient, family. 20:35 Patient left the ED. jl3 Signatures: Sola Cortez mr Salma, Mason, DERIK PA jr8 Iva nichols, environmental field professional EKG Tat1 Michel Suggs, ADHESIVE BONDING MACHINE OPERATOR ADHESIVE BONDING MACHINE OPERATOR jl3 Bairon Yu RN RN hj Baxter, Heather, RN RN Hussein Garcia RN RN ae1 Corrections: (The following items were deleted from the chart) 17:39 14:50 Pt denies substance abuse heydi soliz
[2017-06-27] MEDS ORDERED: LORAZEPAM 1 MG TABLET ONE (20:23)
--- NOTE | 2017-06-29 12:53 | EKG ---
Test Date: 2017-06-27 Test Time: 14:44:39 Silver Recovery Operator: DEB MEASUREMENT RESULTS: Intervals: Rate: 73 KS: 128 QRSD: 84 QT: 342 QTc: 376 [place]: P: 64 KS: 128 QRS: 90 T: 76 INTERPRETIVE STATEMENTS: Normal sinus rhythm Rightward axis Borderline ECG Compared to ECG 06/20/2017 18:30:17 Sinus bradycardia no longer present Sinus arrhythmia no longer present Electronically Signed On 06-29-17 12:52:25 CDT by Julian Reyes
== END 2017-06-27 20:35 | disposition short-term general hospital (02) ==
LOC: ER 14:17
DX: F33.9 Major depressive disorder, recurrent, unspecified (principal); F17.210 Nicotine dependence, cigarettes, uncomplicated; F90.9 Attention-deficit hyperactivity disorder, unspecified type; Z91.030 Bee allergy status
CPT/HCPCS: 36415; 80048; 80076; 80164; 80307; 80320; 80329; 81003; 85025; 85610; 85730; 93005; 99285

== ENCOUNTER 2017-07-10 21:43 | Emergency (ER) | payer SELFPAY ==
--- OUTSIDE RECORDS SUMMARY | 2017-07-10 21:45 | XMS REPORT | Clinical Summary ---
:1995 Author Organization [facility] Address [address] [place] [address] Care Team Providers Name Role Phone Asked, No Pcp Primary Care Provider Unavailable Allergies No Known Allergies Current Medications Prescription Sig. Disp. Refills Start Date End Date Status nicotine (NICODERM Place 1 patch 30 patch 0 06/23/2017 07/23/2017 Active CQ) 21 mg/24 on the skin hrIndications: daily for 30 Smoking Cessation days. divalproex Take 3 90 tablet 0 07/08/2017 08/07/2017 Active (DEPAKOTE) 500 MG 24 tablets hr (1,500 mg tabletIndications: total) by Mood stability mouth nightly for 30 days. hydrOXYzine (ATARAX) Take 1 tablet 30 tablet 0 07/08/2017 08/07/2017 Active 50 MG (50 mg total) tabletIndications: by mouth anxiety every 6 (six) hours as needed for anxiety (insomnia) for up to 30 days. risperiDONE Take 1 tablet 30 tablet 0 07/08/2017 08/07/2017 Active (RisperDAL) 2 MG (2 mg total) tabletIndications: by mouth mood nightly for 30 days. risperiDONE Take 1 tablet 30 tablet 0 07/09/2017 08/08/2017 Active (RisperDAL) 1 MG (1 mg total) tabletIndications: by mouth mood stability daily for 30 days. cetirizine (ZyrTEC) Take 10 mg by 06/25/2017 Discontinued 10 MG tablet mouth daily as needed for allergies. melatonin 10 mg Take by 06/25/2017 Discontinued capsule mouth. divalproex Take 3 90 tablet 0 06/23/2017 06/25/2017 Discontinued (DEPAKOTE) 250 MG 24 tablets (750 hr mg total) by tabletIndications: mouth nightly Mood Disorder for 30 days. Unspecified ARIPiprazole Take 1 tablet 60 tablet 0 06/23/2017 06/25/2017 Discontinued (ABILIFY) 5 MG (5 mg total) tabletIndications: by mouth 2 Mood Disorder (two) times a Unspecified day for 30 days. OLANZapine zydis Take 1 tablet 30 tablet 0 06/25/2017 07/09/2017 Discontinued (ZyPREXA) 10 MG (10 mg total) disintegrating by mouth tabletIndications: nightly for Ashley 30 days. divalproex Take 2 60 tablet 0 06/25/2017 07/09/2017 Discontinued (DEPAKOTE) 500 MG 24 tablets hr (1,000 mg tabletIndications: total) by Ashley associated mouth nightly with Bipolar for 30 days. Disorder Active Problems Problem Noted Date Bipolar I disorder, most recent episode mixed, severe with psychotic 2017 features Resolved Problems Problem Noted Date Resolved Date Unspecified mood (affective) disorder 06/21/2017 06/28/2017 Encounters Date Type Specialty Care Team Description 06/27/2017 - Hospital Encounter Psychiatry Sera Howell MD 07/09/2017 Rajesh Garcia MD 06/21/2017 - Hospital Encounter Psychiatry Rajesh Garcia MD 06/25/2017 after 07/09/2016 Social History Tobacco Use Types Packs/Day Years Used Date Never Assessed Sex Assigned at Date Recorded Not on file Last Filed Vital Signs Vital Sign Reading Time Taken Blood Pressure 119/71 07/09/2017 6:11 AM CDT Pulse 86 07/09/2017 6:11 AM CDT Temperature 36.4 C (97.5 F) 07/09/2017 6:11 AM CDT Respiratory Rate 16 07/09/2017 6:11 AM CDT Oxygen Saturation 96% 07/09/2017 6:11 AM CDT Inhaled Oxygen Concentration - - Weight 58.2 kg (128 lb 4 oz) 07/09/2017 7:32 AM CDT Height 177.8 cm (5' 10") 06/27/2017 10:15 PM CDT Body Mass Index 18.4 07/09/2017 7:32 AM CDT Plan of Treatment Not on file Results ECG 12 lead (07/07/2017 7:37 PM)Only the most recent of2 resultswithin the time period is included. Component Value Ref Range Ventricular rate 101 Atrial rate 101 DC interval 114 QRSD interval 86 QT interval 314 QTC interval 407 P axis 1 71 QRS axis 1 93 T wave axis 74 EKG impression Sinus tachycardia-Rightward axis-Borderline ECG-In automated comparison with ECG of 23-JUN-2017 08:13,-No significant change was found- Specimen Performing Laboratory [facility] MUSE [address] [place] [id number] Valproic acid level (07/03/2017 6:00 AM)Only the most recent of2 resultswithin the time period is included. Component Value Ref Range Valproic acid 116.3 (H) 50.0 - 100.0 ug/mL Comment: Therapeutic Range: 50 - 100 ug/mL Specimen Performing Laboratory Plasma specimen [facility] DEPARTMENT OF PATHOLOGY AND GENOMIC MEDICINE [address] [place] [id number] Hemoglobin A1c (06/22/2017 5:30 AM) Component Value Ref Range Hemoglobin A1C 5.5 4.0 - 5.6 % Comment: HbA1c cutoffs for diagnosing diabetes: 4.0% - 5.6%=normal 5.7% - 6.4%=increased risk for diabetes (prediabetes) >=6.5%=diabetes Goals for glycemic control (ADA 2016) < 7.0%Target for non adults with diabetes. More or less stringent targets may be appropriate for individual patients. <7.5% Target for Children and adolescents with type 1 diabetes. Specimen Performing Laboratory Blood [facility] DEPARTMENT OF PATHOLOGY AND GENOMIC MEDICINE [address] [place] [address]368 Syphilis treponemal IgG (06/22/2017 4:00 AM) Component Value Ref Range Syphilis treponemal IgG Non-reactiveComment: Non-reactive: No Non-reactive serological evidence of Syphilis infection Specimen Performing Laboratory Serum [facility] DEPARTMENT OF PATHOLOGY AND GENOMIC MEDICINE [address] [place] [address] [id number] HIV 1, 2 antibody (06/22/2017 4:00 AM) Component Value Ref Range HIV 1, 2 antibody Non-reactive Non-reactive Comment: Starting from June 27 2015, 4th generation HIV screening and confirmation assays are in use at [facility], consistent with the CDC-recommended algorithm. The screening test detects antibodies to HIV-1, HIV-2 and the p24 antigen. Positive screening results will be automatically reflexed to a HIV-1/HIV-2 differentiation assay. Indeterminant HIV-1 results will be further automatically reflexed to a nucleic acid test for detection of acute infection. Western blot will no longer be performed as a confirmation test. For a quick reference guide on the testing algorithm, please refer to: http://stacks.cdc.gov/view/cdc/21847. Specimen Performing Laboratory Blood [facility] DEPARTMENT OF PATHOLOGY AND GENOMIC MEDICINE [address] [place] [id number] Thyroid stimulating hormone (06/22/2017 4:00 AM) Component Value Ref Range TSH 0.66 0.27 - 4.20 uIU/mL Specimen Performing Laboratory Plasma specimen [facility] DEPARTMENT OF PATHOLOGY AND GENOMIC MEDICINE [address] [place] [address] 12137 Vitamin B12 level (06/22/2017 4:00 AM) Component Value Ref Range Vitamin B12 389 211 - 946 pg/mL Comment: Significant overlap exists between normal and deficiency states. However, most patients with deficiencies will have Serum B12 <200 pg/mL. Specimen Performing Laboratory Serum [facility] DEPARTMENT OF PATHOLOGY AND GENOMIC MEDICINE [address] [place] [address]57 Lipid panel (06/22/2017 4:00 AM) Component Value Ref Range Cholesterol 122 <200 mg/dL Triglycerides 64 <150 mg/dL HDL cholesterol 39 (L) >40 mg/dL LDL cholesterol 68Comment: Result obtained by direct LDL <100 mg/dL measurement Lipid panel interpretation SeeBelow Comment: Total Cholesterol (mg/dL) <200 Desirable [phone]-mbwi >=240High Triglycerides (mg/dL) <150 Normal 297-292Etzgatxvpe-rgct 200-499High >=500Very high HDL Cholesterol (mg/dL) <40Low (male) <40Low (female) LDL Cholesterol (mg/dL) <100 Optimal 100-129Near or above optimal 397-119Mqzmjthyzk-wdwr 160-189High >=190Very high Risk Catergories that modify LDL goals. Risk CatergoriesLDL goal (mg/dL) CHD and CHD risk equivalent<100 (10-year risk >20%) Multiple (2+) risk factors <130 (10-year risk=<20%) 0-1 risk factors <160 (<10-year risk) Defining levels of lipids in metabolic syndrome Triglycerides>=150 mg/dL HDL Cholesterol Men<40 mg/dL Women<40 mg/dL Non-HDL cholesterol is a second target for therapy in persons with high triglycerides (>=200 mg/dL) Specimen Performing Laboratory Plasma specimen [facility] DEPARTMENT OF PATHOLOGY AND GENOMIC MEDICINE [address] [place] [address] after 07/09/2016
[2017-07-10 22:09] LABS: Urine Blood NEGATIVE (NEG); Urine Glucose NEGATIVE (NEG); Urine Protein NEGATIVE (NEG); Urine pH 8.5 (5.0-7.0)
[2017-07-10] MEDS ORDERED: hydrOXYzine HCl 25 MG TAB ONE (22:20)
--- NOTE | 2017-07-10 22:21 | EDPHYS ---
Physician Documentation [facility] Name: Krzysztof Palomino Age: 21 yrs Sex: Male : 1995 Arrival Date: 07/10/2017 Time: 22:03 Bed 21 Private MD: ED Physician Nils Bingham HPI: 07/10 22:15 This 21 yrs old Male presents to ER via Law Enforcement with complaints of michelle Suicidal Ideation. 22:15 The patient presents to the emergency department with anxiety. Onset: The michelle symptoms/episode began/occurred just prior to arrival, today. Past psychiatric history: Prior diagnosis: bipolar disorder, depression. Associated signs and symptoms: Pertinent positives; anxiety. Severity of symptoms: At their worst the symptoms were mild in the emergency department the symptoms have improved. The patient has experienced similar episodes in the past, several times. Historical: - Allergies: 22:09 BEE STINGS; fc - Home Meds: 22:09 Depakote 500 mg Oral TbEC 3 tabs nightly [Active]; Risperdal 1 mg in the am and 2 mg in fc the pm Oral [Active]; hydroxyzine HCl 50 mg Oral tab 1 tab q 6 hrs prn [Active]; Zyprexa 10 mg Oral tab 2 tabs nightly [Active]; - PMHx: 22:09 ADD/ADHD; Bipolar disorder; Anxiety; PTSD; fc - PSHx: 22:09 None; fc - Immunization history:: Last tetanus immunization: unknown. - Social history:: Smoking status: Patient uses tobacco products, smokes one pack cigarettes per day. Patient uses street drugs, marijuana, Patient/guardian denies using alcohol. ROS: 22:16 Constitutional: Negative for fever, chills, and weight loss, Eyes: Negative for injury, michelle pain, redness, and discharge, ENT: Negative for injury, pain, and discharge, Neck: Negative for injury, pain, and swelling, Cardiovascular: Negative for chest pain, palpitations, and edema, Respiratory: Negative for shortness of breath, cough, wheezing, and pleuritic chest pain, Abdomen/GI: Negative for abdominal pain, nausea, vomiting, diarrhea, and constipation, Back: Negative for injury and pain, : Negative for injury, bleeding, discharge, and swelling, MS/Extremity: Negative for injury and deformity, Skin: Negative for injury, rash, and discoloration, Neuro: Negative for headache, weakness, numbness, tingling, and seizure, Allergy/Immunology: Negative for hives, rash, and allergies, Endocrine: Negative for neck swelling, polydipsia, polyuria, polyphagia, and marked weight changes, Hematologic/Lymphatic: Negative for swollen nodes, abnormal bleeding, and unusual bruising. 22:16 Psych: Positive for anxiety. Exam: 22:16 Constitutional: This is a well developed, well nourished patient who is awake, alert, michelle and in no acute distress. Head/Face: Normocephalic, atraumatic. Eyes: Pupils equal round and reactive to light, extra-ocular motions intact. Lids and lashes normal. Conjunctiva and sclera are non-icteric and not injected. Cornea within normal limits. Periorbital areas with no swelling, redness, or edema. ENT: Nares patent. No nasal discharge, no septal abnormalities noted. Tympanic membranes are normal and external auditory canals are clear. Oropharynx with no redness, swelling, or masses, exudates, or evidence of obstruction, uvula midline. Mucous membranes moist. Neck: Trachea midline, no thyromegaly or masses palpated, and no cervical lymphadenopathy. Supple, full range of motion without nuchal rigidity, or vertebral point tenderness. No Meningismus. Chest/axilla: Normal chest wall appearance and motion. Nontender with no deformity. No lesions are appreciated. Cardiovascular: Regular rate and rhythm with a normal S1 and S2. No gallops, murmurs, or rubs. Normal PMI, no JVD. No pulse deficits. Respiratory: Lungs have equal breath sounds bilaterally, clear to auscultation and percussion. No rales, rhonchi or wheezes noted. No increased work of breathing, no retractions or nasal flaring. Abdomen/GI: Soft, non-tender, with normal bowel sounds. No distension or tympany. No guarding or rebound. No evidence of tenderness throughout. Back: No spinal tenderness. No costovertebral tenderness. Full range of motion. Skin: Warm, dry with normal turgor. Normal color with no rashes, no lesions, and no evidence of cellulitis. MS/ Extremity: Pulses equal, no cyanosis. Neurovascular intact. Full, normal range of motion. Neuro: Awake and alert, GCS 15, oriented to person, place, time, and situation. Cranial nerves II-XII grossly intact. Motor strength 5/5 in all extremities. Sensory grossly intact. Cerebellar exam normal. Normal gait. Psych: Awake, alert, with orientation to person, place and time. Behavior, mood, and affect are within normal limits. Vital Signs: 22:09 Weight 58.06 kg (R); Height 6 ft. 0 in. (182.88 cm) (R); Pain 3/10; fc 22:18 BP 104 / 78; Pulse 95; Resp 12; Temp 98.6(O); Pulse Ox 100% on R/A; Pain 0/10; em1 22:09 Body Mass Index 17.36 (58.06 kg, 182.88 cm) MDM: 22:05 Patient medically screened. [facility] 07/10 22:04 Order name: Urine Dipstick--Ancillary (enter results); Complete Time: 22:15 [facility] 07/10 22:04 Order name: Urine Dipstick-Ancillary (obtain specimen); Complete Time: 22:04 [facility] 07/10 22:15 Interpretation: Abnormal. [facility] Administered Medications: 22:21 Drug: Atarax 50 mg Route: PO; 22:40 Follow up: Response: No adverse reaction lp1 Disposition: 07/10/17 22:21 Discharged to Home. Impression: Anxiety disorder, unspecified, Post-traumatic stress disorder (PTSD). - Condition is Stable. - Discharge Instructions: Generalized Anxiety Disorder. - Medication Reconciliation Form, Thank You Letter, Antibiotic Education, Prescription Opioid Use form. - Follow up: Private Physician; When: As needed; Reason: Recheck today's complaints, Continuance of care, Re-evaluation by your physician. - Problem is new. - Symptoms have improved. Signatures: Dispatcher [employer] Nils Cleveland MD MD cha Chretien, Felicia RN HERIBERTO Anshul Winters [facility] Radha Carroll RN RN lp1
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
== END 2017-07-10 22:40 | disposition home or self-care (01) ==
LOC: ER 21:43
DX: F43.10 Post-traumatic stress disorder, unspecified (principal); F31.9 Bipolar disorder, unspecified; F17.210 Nicotine dependence, cigarettes, uncomplicated; Z91.030 Bee allergy status
CPT/HCPCS: 81003; 99284

== ENCOUNTER 2017-07-12 | Emergency (ER) | payer SELFPAY ==
--- OUTSIDE RECORDS SUMMARY | 2017-07-12 15:26 | XMS REPORT | Clinical Summary ---
:1995 Author Organization [facility] Address [address] [place] [address] Care Team Providers Name Role Phone Asked, [...] Encounter Psychiatry Rajesh Garcia MD 06/25/2017 after 07/11/2016 Social History Tobacco Use Types Packs/Day Years [...] Range Ventricular rate 101 Atrial rate 101 MS interval 114 QRSD interval 86 QT interval 314 QTC interval 407 P axis 1 71 QRS axis 1 93 T wave axis 74 EKG impression Sinus tachycardia-Rightward axis-Borderline ECG-In automated comparison with ECG of 23-JUN-2017 08:13,-No significant change was found- Specimen Performing Laboratory [facility] MUSE [address] [place] [id number] Valproic acid level (07/03/2017 6:00 AM)Only the most recent of2 resultswithin the time period is included. Component Value Ref Range Valproic acid 116.3 (H) 50.0 - 100.0 ug/mL Comment: Therapeutic Range: 50 - 100 ug/mL Specimen Performing Laboratory Plasma specimen [facility] DEPARTMENT OF PATHOLOGY AND GENOMIC MEDICINE [address] [place] [address] 94184 Hemoglobin A1c (06/22/2017 5:30 AM) Component Value [...] type 1 diabetes. Specimen Performing Laboratory Blood [facility] DEPARTMENT OF PATHOLOGY AND GENOMIC MEDICINE [address] [place] [address] 96388 Syphilis treponemal IgG (06/22/2017 4:00 AM) Component Value Ref Range Syphilis treponemal IgG Non-reactiveComment: Non-reactive: No Non-reactive serological evidence of Syphilis infection Specimen Performing Laboratory Serum [facility] DEPARTMENT OF PATHOLOGY AND GENOMIC MEDICINE [address] [place] [address] 61040 HIV 1, 2 antibody (06/22/2017 4:00 AM) Component Value Ref Range HIV 1, 2 antibody Non-reactive Non-reactive Comment: Starting from June 27 2015, 4th generation HIV screening and confirmation assays are in use at [facility], consistent with the CDC-recommended algorithm. [...] on the testing algorithm, please refer to: http://stacks.cdc.gov/view/cdc/93386. Specimen Performing Laboratory Blood [facility] DEPARTMENT OF PATHOLOGY AND GENOMIC MEDICINE [address] [place] [address] 59700 Thyroid stimulating hormone (06/22/2017 4:00 AM) Component Value Ref Range TSH 0.66 0.27 - 4.20 uIU/mL Specimen Performing Laboratory Plasma specimen [facility] DEPARTMENT OF PATHOLOGY AND GENOMIC MEDICINE [address] [place] [address] 48402 Vitamin B12 level (06/22/2017 4:00 AM) Component Value Ref Range Vitamin B12 389 211 - 946 pg/mL Comment: Significant overlap exists between normal and deficiency states. However, most patients with deficiencies will have Serum B12 <200 pg/mL. Specimen Performing Laboratory Serum [facility] DEPARTMENT OF PATHOLOGY AND GENOMIC MEDICINE [address] [place] [address] 19003 Lipid panel (06/22/2017 4:00 AM) Component Value Ref Range Cholesterol 122 <200 mg/dL Triglycerides 64 <150 mg/dL HDL cholesterol 39 (L) >40 mg/dL LDL cholesterol 68Comment: Result obtained by direct LDL <100 mg/dL measurement Lipid panel interpretation SeeBelow Comment: Total Cholesterol (mg/dL) <200 Desirable [id number]-osui >=240High Triglycerides (mg/dL) <150 Normal 619-315Hynluudzzq-ucut 200-499High >=500Very high HDL Cholesterol (mg/dL) <40Low (male) <40Low (female) LDL Cholesterol (mg/dL) <100 Optimal 100-129Near or above optimal 277-901Dijqllrobc-nbgs 160-189High >=190Very high Risk Catergories that modify [...] (>=200 mg/dL) Specimen Performing Laboratory Plasma specimen [facility] DEPARTMENT OF PATHOLOGY AND GENOMIC MEDICINE [address] [place] [address] after 07/11/2016
--- NOTE | 2017-07-12 16:06 | ER ---
Nurse's Notes [facility] Name: Krzysztof Palomino Age: 21 yrs Sex: Male : 1995 Arrival Date: 07/12/2017 Time: 15:26 Bed 26 Private MD: Diagnosis: Panic disorder [episodic paroxysmal anxiety] without agoraphobia;Generalized anxiety disorder Presentation: 07/12 15:28 Presenting complaint: Patient states: I have been at [facility] for the past 2-3 weeks la1 and I have been out for a few days and the medications I am on are giving me anxiety. Transition of care: patient was not received from another setting of care. Onset of symptoms was July 12, 2017. Care prior to arrival: None. 15:28 Method Of Arrival: Ambulatory la1 15:28 Acuity: JERAMY 3 la1 Historical: - Allergies: 15:29 BEE STINGS; la1 - PMHx: 15:29 ADD/ADHD; Anxiety; Bipolar disorder; PTSD; la1 - Immunization history:: Adult Immunizations up to date. - Social history:: Smoking status: Patient uses tobacco products, smokes one pack cigarettes per day. Screenin:02 Abuse screen: Denies threats or abuse. Nutritional screening: No deficits noted. tl3 Tuberculosis screening: No symptoms or risk factors identified. Fall Risk None identified. Assessment: 16:02 General: Appears in no apparent distress. comfortable, slender, well groomed, well tl3 developed, well nourished, Behavior is calm, cooperative, appropriate for age. Pain: Denies pain. Neuro: Level of Consciousness is awake, alert, obeys commands, Oriented to person, place, time, situation, Appropriate for age. Neuro: Reports anxious worried that meds are not working, Mason at bedside discussing POC and proper medication usage. Cardiovascular: Heart tones S1 S2 present. Respiratory: Airway is patent Trachea midline Respiratory effort is even, unlabored, Respiratory pattern is regular, symmetrical, Breath sounds are clear bilaterally. GI: No signs and/or symptoms were reported involving the gastrointestinal system. : No signs and/or symptoms were reported regarding the genitourinary system. EENT: No signs and/or symptoms were reported regarding the EENT system. Derm: No signs and/or symptoms reported regarding the dermatologic system. Musculoskeletal: No signs and/or symptoms reported regarding the musculoskeletal system. Vital Signs: 15:29 BP 118 / 82; Pulse 105; Resp 16; Temp 97.4; Pulse Ox 100% on R/A; Weight 58.06 kg; la1 Height 6 ft. 0 in. (182.88 cm); 15:29 Body Mass Index 17.36 (58.06 kg, 182.88 cm) la1 ED Course: 15:26 Patient arrived in ED. tw3 15:29 Triage completed. la1 15:30 Arm band placed on left wrist. la1 15:33 Cecilia Barron, RN is Primary Nurse. tl3 15:35 Mason Marsh PA is PHCP. jr8 15:35 Severo Brown MD is Attending Physician. jr8 16:02 No apparent distress. tl3 16:02 Patient has correct armband on for positive identification. tl3 16:02 No provider procedures requiring assistance completed. Patient did not have IV access tl3 during this emergency room visit. Administered Medications: No medications were administered Outcome: 16:06 Discharge ordered by . jr8 16:22 Discharged to home rk2 16:22 Condition: good 16:22 Discharge instructions given to patient, Prescriptions given X 1. 16:23 Patient left the ED. rk2 Signatures: Mason Marsh PA PA jr8 David Rodgers RN RN la1 Nuvia Masesy tw3 Joanne Colby RN RN rk2 Cecilia Barron, HERIBERTO RN tl3
--- NOTE | 2017-07-12 16:06 | EDPHYS ---
Physician Documentation [facility] Name: Krzysztof Palomino Age: 21 yrs Sex: Male : 1995 Arrival Date: 07/12/2017 Time: 15:26 Bed 26 Private MD: ED Physician Severo Brown HPI: 07/12 16:23 This 21 yrs old Male presents to ER via Ambulatory with complaints of Anxiety.jr8 16:23 The patient presents to the emergency department with anxiety. Onset: The jr8 symptoms/episode began/occurred continuous for past few months . Past psychiatric history: Prior diagnosis: bipolar disorder, depression, Psychiatric medications include: Risperdal, hydroxizine, divalproex . Associated signs and symptoms: The patient has no apparent associated signs or symptoms. Severity of symptoms: At their worst the symptoms were moderate in the emergency department the symptoms have resolved. The patient has experienced similar episodes in the past, multiple times. The patient has been recently seen by a physician:. Patient has been in and out of [facility] for anxiety, depression, bipolar. Has had a hard time controlling mood and anxiety. Recently started on the medications listed. Stated that he has been taking his hydroxizine as prescribed and continuous but without relief from anxiety. Historical: - Allergies: 15:29 BEE STINGS; la1 - PMHx: 15:29 ADD/ADHD; Anxiety; Bipolar disorder; PTSD; la1 - Immunization history:: Adult Immunizations up to date. - Social history:: Smoking status: Patient uses tobacco products, smokes one pack cigarettes per day. ROS: 16:23 Eyes: Negative for injury, pain, redness, and discharge, ENT: Negative for injury, jr8 pain, and discharge, Neck: Negative for injury, pain, and swelling, Cardiovascular: Negative for chest pain, palpitations, and edema, Respiratory: Negative for shortness of breath, cough, wheezing, and pleuritic chest pain, Abdomen/GI: Negative for abdominal pain, nausea, vomiting, diarrhea, and constipation, Back: Negative for injury and pain, MS/Extremity: Negative for injury and deformity, Skin: Negative for injury, rash, and discoloration. 16:23 Neuro: Negative for headache, weakness, numbness, tingling, and seizure. 16:23 Psych: Positive for anxiety. Exam: 16:23 Eyes: Pupils equal round and reactive to light, extra-ocular motions intact. Lids and jr8 lashes normal. Conjunctiva and sclera are non-icteric and not injected. Cornea within normal limits. Periorbital areas with no swelling, redness, or edema. ENT: Nares patent. No nasal discharge, no septal abnormalities noted. Tympanic membranes are normal and external auditory canals are clear. Oropharynx with no redness, swelling, or masses, exudates, or evidence of obstruction, uvula midline. Mucous membranes moist. Neck: Trachea midline, no thyromegaly or masses palpated, and no cervical lymphadenopathy. Supple, full range of motion without nuchal rigidity, or vertebral point tenderness. No Meningismus. Cardiovascular: Regular rate and rhythm with a normal S1 and S2. No gallops, murmurs, or rubs. Normal PMI, no JVD. No pulse deficits. Respiratory: Lungs have equal breath sounds bilaterally, clear to auscultation and percussion. No rales, rhonchi or wheezes noted. No increased work of breathing, no retractions or nasal flaring. Abdomen/GI: Soft, non-tender, with normal bowel sounds. No distension or tympany. No guarding or rebound. No evidence of tenderness throughout. Back: No spinal tenderness. No costovertebral tenderness. Full range of motion. Skin: Warm, dry with normal turgor. Normal color with no rashes, no lesions, and no evidence of cellulitis. MS/ Extremity: Pulses equal, no cyanosis. Neurovascular intact. Full, normal range of motion. Neuro: Awake and alert, GCS 15, oriented to person, place, time, and situation. Cranial nerves II-XII grossly intact. Motor strength 5/5 in all extremities. Sensory grossly intact. Cerebellar exam normal. Normal gait. 16:23 Psych: Behavior/mood is pleasant, cooperative, Affect is calm, Oriented to person, place, time, Patient has no thoughts/intents to harm self or others. Judgement / Insight is normal. Memory is normal. Delusions/hallucinations are not present. Vital Signs: 15:29 BP 118 / 82; Pulse 105; Resp 16; Temp 97.4; Pulse Ox 100% on R/A; Weight 58.06 kg; la1 Height 6 ft. 0 in. (182.88 cm); 15:29 Body Mass Index 17.36 (58.06 kg, 182.88 cm) la1 MDM: 15:35 Patient medically screened. jr8 16:05 Data reviewed: vital signs, nurses notes, and as a result, I will discharge patient. kylah Data interpreted: Pulse oximetry: on room air is 100 %. Interpretation: normal. Counseling: I had a detailed discussion with the patient and/or guardian regarding: the historical points, exam findings, and any diagnostic results supporting the discharge/admit diagnosis, the need for outpatient follow up, a psychiatrist, to return to the emergency department if symptoms worsen or persist or if there are any questions or concerns that arise at home. 16:23 ED course: detailed discussion with patient and mother that it does seem that he is kylah having continued anxiety based on what he described. Will try utilizing benzo over the weekend as trial to see how he does. Will be up to psychiatrist to determine whether he wants him on it residential or not. Family and patient pleased with this and has f/u appointment on Friday . Administered Medications: No medications were administered Disposition: 16:45 Co-signature as Attending Physician, Severo Brown MD I agree with the assessment and kdr plan of care. Disposition: 07/12/17 16:06 Discharged to Home. Impression: Panic disorder [episodic paroxysmal anxiety] without agoraphobia, Generalized anxiety disorder. - Condition is Stable. - Discharge Instructions: Panic Attacks, Generalized Anxiety Disorder. - Prescriptions for Ativan 1 mg Oral Tablet - take 1 tablet by ORAL route every 8 hours As needed; 10 tablet. - Medication Reconciliation Form, Thank You Letter, Antibiotic Education, Prescription Opioid Use form. - Follow up: Private Physician; When: 2 - 3 days; Reason: Recheck today's complaints, Continuance of care, Re-evaluation by your physician. - Problem is new. - Symptoms have improved. Signatures: Severo Brown MD MD kdr Roszak, Josh, PA PA jr8 David Rodgers RN RN la1 Joanne Colby RN RN rk2
== END 2017-07-12 16:23 | disposition home or self-care (01) ==
CPT/HCPCS: 99282

== ENCOUNTER 2019-10-20 11:36 | Emergency (ER) | payer SELFPAY ==
--- OUTSIDE RECORDS SUMMARY | 2019-10-20 12:26 | XMS REPORT | Clinical Summary ---
:1995 Author Organization [facility] [employer] Address [address] [place] [address] Care Team Providers Name Role Phone Asked, Pcp Primary Care Provider Unavailable Allergies No Known Allergies Medications No known medications Active Problems Problem Noted Date Bipolar I disorder, most recent episode mixed, severe with psychotic 06/28/2017 features Social History Tobacco Use Types Packs/Day Years Used Date Never Assessed Sex Assigned at Date Recorded Not on file Job Start Date Occupation Industry Not on file Not on file Not on file Travel History Travel Start Travel End No recent travel history available. Last Filed Vital Signs Not on file Plan of Treatment Not on file Results Not on fileafter 10/19/2018 Advance Directives For more information, please contact: [phone] Type Date Recorded Patient [employer] Explanati on Advance Directives, Living Will 06/27/2017 9:34 PM and Medical Power of Miniature Train [employer] Code Status Date Activated Date Inactivated Comments Full Code 06/28/2017 10:01 AM 07/09/2017 10:43 PM Code Status decision reached by: Patient
--- NOTE | 2019-10-20 13:16 | RAD REPORT ---
EXAM DESCRIPTION: CT - Head Brain Wo Cont - 10/20/2019 1:06 pm CLINICAL HISTORY: Weakness/numbness COMPARISON: None. TECHNIQUE: Computed axial tomography of the head was obtained. IV contrast was not requested. All CT scans are performed using dose optimization technique as appropriate and may include automated exposure control or mA/KV adjustment according to patient size. FINDINGS: An intracranial bleed is not seen . The ventricles are normal in caliber. No extra-axial fluid collection is noted. Fluid within the sinuses/ mastoids is not seen. IMPRESSION: No acute intracranial abnormality is seen. If patient's symptoms persist MRI of the bra in would be recommended.
[2019-10-20] MEDS ORDERED: NA CHLORIDE 0.9% 1,000 ML ONE ×2 (13:25→15:16)
[2019-10-20 13:29] LABS: Absolute Lymphocytes (CBC) 2.5 K/uL (0.7-4.9); Basophils % 0.7 % (0-1.3); Hematocrit 44.7 % (39.6-49.0); Lymphocytes % 23.9 % (15.3-44.8); MPV 9.1 fL (7.6-11.3); RBC Red Blood Cell Count 5.18 M/uL (4.33-5.43)
[2019-10-20 13:46] LABS: Potassium 3.5 mmol/L (3.5-5.1)
[2019-10-20 14:29] LABS: ALT/SGPT 11 U/L (12-78); AST/SGOT 10 U/L (15-37); Albumin 3.6 g/dL (3.4-5.0); Alkaline Phosphatase 60 U/L (45-117); Bilirubin Direct < 0.1 mg/dL (0-0.2); Bilirubin Total 0.3 mg/dL (0.2-1.0); Protein, Total 6.7 g/dL (6.4-8.2)
[2019-10-20 15:29] LABS: Barbiturates NEGATIVE (NEGATIVE); Benzodiazepines NEGATIVE (NEGATIVE); Cocaine NEGATIVE (NEGATIVE); METHAMPHETAM NEGATIVE (NEGATIVE); Methadone NEGATIVE (NEGATIVE); Opiates NEGATIVE (NEGATIVE); Phencyclidine NEGATIVE (NEGATIVE); THC Cannibis POSITIVE (NEGATIVE)
--- NOTE | 2019-10-20 16:13 | ER ---
Nurse's Notes [facility] Name: Krzysztof Palomino Age: 23 yrs Sex: Male : 1995 Arrival Date: 10/20/2019 Time: 11:38 Bed 18 Private MD: Diagnosis: Dehydration Presentation: 10/19 12:10 Chief complaint: Patient states: Started feeling weak all over this morning. Mom states jl7 "He's been manic for 2 days. Hasn't eaten in 2 days, having nightmares about people trying to kill him.". Coronavirus screen: Patient denies a cough. Patient denies shortness of breath or difficulty breathing. Patient denies measured and/or subjective temperature greater than 100.4F prior to today's visit. Patient denies travel on a cruise ship or to a country the [facility] currently lists as an affected area. Patient denies contact with known and/or suspected case of COVID-19. Proceed with normal triage. Ebola Screen: No symptoms or risks identified at this time. Initial Sepsis Screen: Does the patient meet any 2 criteria? No. Patient's initial sepsis screen is negative. Does the patient have a suspected source of infection? No. Patient's initial sepsis screen is negative. Risk Assessment: Do you want to hurt yourself or someone else? Patient reports no desire to harm self or others. Onset of symptoms was October 20, 2019. Care prior to arrival: None. Transition of care: patient was not received from another setting of care. 12:10 Method Of Arrival: Wheelchair [facility] 12:10 Acuity: JERAMY 3 jl7 Triage Assessment: 12:15 General: Appears in no apparent distress. uncomfortable, ill, Behavior is calm, jl7 cooperative. Pain: Complains of pain in all over Pain currently is 10 out of 10 on a pain scale. Neuro: Level of Consciousness is awake, alert, obeys commands, Oriented to person, place, time, situation. Historical: - Allergies: 12:14 BEE STINGS; jl7 - PMHx: 12:14 ADD/ADHD; Anxiety; Bipolar disorder; PTSD; jl7 - PSHx: 12:14 None; jl7 - Immunization history:: Adult Immunizations unknown. - Social history:: Smoking status: Patient reports the use of cigarette tobacco products, smokes one pack cigarettes per day. Screenin:35 Abuse screen: Denies threats or abuse. Nutritional screening: No deficits noted. Tuberculosis screening: No symptoms or risk factors identified. Fall Risk None identified. Assessment: 12:36 General: Appears uncomfortable, Behavior is anxious, flat. 12:36 Pain: Complains of pain in generalized pain all over. Neuro: Level of Consciousness is awake, alert, obeys commands, Oriented to person, place, time, situation, Reports weakness in all over. Cardiovascular: Heart tones S1 S2 present. Respiratory: Airway is patent Respiratory effort is even, unlabored. GI: Reports No eating yesterday or today. EENT:. Derm: Skin is intact, is healthy with good turgor. 12:45 Reassessment: Pt vomited after IV insertion. Pt was very anxious. 14:48 Reassessment: Patient is alert, oriented x 3, equal unlabored respirations, skin ah warm/dry/pink. No needs voiced at this time. Vital Signs: 12:10 BP 133 / 79; Pulse 108; Resp 19; Temp 99.6; Pulse Ox 98% ; Weight 56.7 kg; Height 5 ft. jl7 11 in. (180.34 cm); Pain 10/10; 14:44 BP 124 / 77; Pulse 82; Resp 18; Pulse Ox 100% ; ah 15:30 BP 122 / 72; Pulse 82; Resp 15; Pulse Ox 99% ; ah 16:29 BP 114 / 76; Pulse 80; Resp 16; Pulse Ox 98% ; ah 12:10 Body Mass Index 17.43 (56.70 kg, 180.34 cm) jl7 ED Course: 11:38 Patient arrived in ED. mr 12:13 Triage completed. jl7 12:15 Arm band placed on left wrist. Patient placed in waiting room, Patient notified of wait jl7 time. 12:43 Polina Castellanos [facility]NP-C [facility]. kb 12:43 Catrachito Kaplan MD is Attending Physician. kb 13:00 Inserted saline lock: 20 gauge in right antecubital area, using aseptic technique. 13:06 CT Head Brain wo Cont In Process Unspecified. EDMS 13:14 Jessica Reyes, RN is Primary Nurse. 14:35 Patient has correct armband on for positive identification. Bed in low position. Call light in reach. Side rails up X 1. Pulse ox on. NIBP on. 16:30 IV discontinued, intact, bleeding controlled, No redness/swelling at site. Pressure dressing applied. 16:30 No provider procedures requiring assistance completed. Administered Medications: 13:35 Drug: NS 0.9% 1000 ml Route: IV; Rate: 1000 ml; Site: right antecubital; Outcome: 16:12 Discharge ordered by MD. shell 16:29 Discharged to home ambulatory. 16:29 Condition: good 16:29 Discharge instructions given to patient, Instructed on discharge instructions, follow up and referral plans. Demonstrated understanding of instructions, follow-up care. 16:30 Patient left the ED. Signatures: Dispatcher [employer] EDPolina Ordoñez, OLIVER CINTRONP-Geena Olsen Jahala, RN RN Jessica Ornelas RN RN Corrections: (The following items were deleted from the chart) 14:33 14:31 General: Appears [facility]
--- NOTE | 2019-10-20 16:13 | EDPHYS ---
Physician Documentation [facility] Name: Krzysztof Palomino Age: 23 yrs Sex: Male : 1995 Arrival Date: 10/20/2019 Time: 11:38 Bed 18 Private MD: ED Physician Catrachito Kaplan HPI: 10/19 16:21 This 23 yrs old Male presents to ER via Wheelchair with complaints of kb Weakness. 16:24 The patient presents with generalized weakness. Onset: The symptoms/episode kb began/occurred this morning. Context: occurred at home, occurred while the patient was getting up from bed, just prior to the episode the patient experienced no apparent symptoms. Modifying factors: The symptoms are alleviated by nothing, the symptoms are aggravated by nothing. Associated signs and symptoms: The patient has no apparent associated signs or symptoms. Severity of symptoms: At their worst the symptoms were moderate in the emergency department the symptoms are unchanged. Patient's baseline: Neuro: alert and fully oriented, Motor: no deficits, Ambulation: walks without assistance, Speech: normal. The patient has not experienced similar symptoms in the past. The patient has not recently seen a physician. PT anxious upon exam. States he had a three hour seizure last night and described what everyone in the house was doing during his seizure, stating they just watched him. Pt's mother called and said pt has had delusions for a long time and sees a psychiatrist in [place] for management. . Historical: - Allergies: 12:14 BEE STINGS; jl7 - PMHx: 12:14 ADD/ADHD; Anxiety; Bipolar disorder; PTSD; jl7 - PSHx: 12:14 None; jl7 - Immunization history:: Adult Immunizations unknown. - Social history:: Smoking status: Patient reports the use of cigarette tobacco products, smokes one pack cigarettes per day. ROS: 16:14 Constitutional: Negative for fever, chills, and weight loss, Cardiovascular: Negative kb for chest pain, palpitations, and edema, Respiratory: Negative for shortness of breath, cough, wheezing, and pleuritic chest pain, Abdomen/GI: Negative for abdominal pain, nausea, vomiting, diarrhea, and constipation, Back: Negative for injury and pain, MS/Extremity: Negative for injury and deformity, Skin: Negative for injury, rash, and discoloration. 16:14 Neuro: Positive for seizure activity, weakness. 16:15 Psych: Positive for anxiety, Negative for homicidal ideation, suicide gesture, suicidal kb ideation. Exam: 16:14 Constitutional: This is a well developed, well nourished patient who is awake, alert, kb and in no acute distress. Head/Face: Normocephalic, atraumatic. Chest/axilla: Normal chest wall appearance and motion. Nontender with no deformity. No lesions are appreciated. Cardiovascular: Regular rate and rhythm with a normal S1 and S2. No gallops, murmurs, or rubs. Normal PMI, no JVD. No pulse deficits. Respiratory: Lungs have equal breath sounds bilaterally, clear to auscultation and percussion. No rales, rhonchi or wheezes noted. No increased work of breathing, no retractions or nasal flaring. Abdomen/GI: Soft, non-tender, with normal bowel sounds. No distension or tympany. No guarding or rebound. No evidence of tenderness throughout. Back: No spinal tenderness. No costovertebral tenderness. Full range of motion. Skin: Warm, dry with normal turgor. Normal color with no rashes, no lesions, and no evidence of cellulitis. MS/ Extremity: Pulses equal, no cyanosis. Neurovascular intact. Full, normal range of motion. Neuro: Awake and alert, GCS 15, oriented to person, place, time, and situation. Cranial nerves II-XII grossly intact. Motor strength 5/5 in all extremities. Sensory grossly intact. Cerebellar exam normal. Normal gait. 16:14 Psych: Behavior/mood is anxious, Affect is animated, Oriented to person, place, time, Patient has no thoughts/intents to harm self or others. Judgement / Insight is normal. Memory is normal. Delusions/hallucinations are not present. 16:16 ECG was reviewed by the Attending Physician. Vital Signs: 12:10 BP 133 / 79; Pulse 108; Resp 19; Temp 99.6; Pulse Ox 98% ; Weight 56.7 kg; Height 5 ft. jl7 11 in. (180.34 cm); Pain 10/10; 14:44 BP 124 / 77; Pulse 82; Resp 18; Pulse Ox 100% ; ah 15:30 BP 122 / 72; Pulse 82; Resp 15; Pulse Ox 99% ; ah 16:29 BP 114 / 76; Pulse 80; Resp 16; Pulse Ox 98% ; ah 12:10 Body Mass Index 17.43 (56.70 kg, 180.34 cm) jl7 MDM: 12:43 Patient medically screened. kb 13:22 ED course: [id number] eileen ponce put pt on Pristiq, seroquel, and lorazapam. kb Mother: Mallorie sommers [phone]. 16:15 Data reviewed: vital signs, nurses notes. Data interpreted: Pulse oximetry: on room air kb is 100 %. Interpretation: normal. Counseling: I had a detailed discussion with the patient and/or guardian regarding: the historical points, exam findings, and any diagnostic results supporting the discharge/admit diagnosis, lab results, the need for outpatient follow up, a family practitioner, to return to the emergency department if symptoms worsen or persist or if there are any questions or concerns that arise at home. 16:22 ED course: Pt is now clam, cooperative and pleasant after fluids. States he is feeling kb much better and wants to go home. Discussed pt condition with Dr Kaplan, who recommended testing for COVID. Pt refused test, stating "I don't think I have COVID, I haven't had a cough or anything and I really don't want that thing in my nose.". 10/19 12:43 Order name: Basic Metabolic Panel; Complete Time: 13:50 kb 10/19 12:43 Order name: CBC with Diff; Complete Time: 13:37 kb 10/19 13:26 Order name: Acetaminophen; Complete Time: 14:35 kb 10/19 13:26 Order name: ETOH Level; Complete Time: 14:37 kb 10/19 13:26 Order name: Hepatic Function; Complete Time: 14:35 kb 10/19 13:26 Order name: Salicylate; Complete Time: 14:21 kb 10/19 12:43 Order name: IV Saline Lock; Complete Time: 13:42 kb 10/19 12:43 Order name: Labs collected and sent; Complete Time: 13:42 kb 10/19 12:55 Order name: CT Head Brain wo Cont; Complete Time: 13:19 kb 10/19 13:26 Order name: Urine Drug Screen; Complete Time: 15:33 kb 10/19 13:26 Order name: EKG; Complete Time: 13:27 kb 10/19 15:35 Order name: Urine Dipstick--Ancillary (enter results) bd 10/19 16:21 Order name: COVID-19; Complete Time: 16:30 kb 10/19 13:26 Order name: EKG - Nurse/Tech; Complete Time: 14:30 kb 10/19 13:26 Order name: Urine Dipstick-Ancillary (obtain specimen); Complete Time: 16:18 kb EC:16 Rate is 81 beats/min. Rhythm is regular. QRS [place] is Normal. AL interval is normal at kb 130 msec. QRS interval is normal at 82 msec. QT interval is normal at 378 msec. Administered Medications: 13:35 Drug: NS 0.9% 1000 ml Route: IV; Rate: 1000 ml; Site: right antecubital; Disposition: 17:39 Co-signature as Attending Physician, Catrachito Kaplan MD. rn Disposition: 10/20/19 16:12 Discharged to Home. Impression: Dehydration. - Condition is Stable. - Discharge Instructions: Dehydration, Adult. - Medication Reconciliation Form, Thank You Letter, Antibiotic Education, Prescription Opioid Use form. - Follow up: Emergency Department; When: As needed; Reason: Worsening of condition. Follow up: Private Physician; When: 2 - 3 days; Reason: Recheck today's complaints, Continuance of care, Re-evaluation by your physician. Signatures: Dispatcher [employer] EDIL Polina Castellanos, FRATERNITY ADVISER-C FRATERNITY ADVISER-Ckb Catrachito Kaplan MD MD rn Leal, Jahala, RN RN Jessica Maher RN RN Corrections: (The following items were deleted from the chart) 16:30 16:12 10/20/2019 16:12 Discharged to Home. Impression: Dehydration. Condition is ah Stable. Forms are Medication Reconciliation Form, Thank You Letter, Antibiotic Education, Prescription Opioid Use. Follow up: Emergency Department; When: As needed; Reason: Worsening of condition. Follow up: Private Physician; When: 2 - 3 days; Reason: Recheck today's complaints, Continuance of care, Re-evaluation by your physician. kb
[2019-10-20 20:48] LABS: Urine Blood NEGATIVE (NEG); Urine Glucose NEGATIVE (NEG); Urine Protein TRACE (NEG); Urine Specific Gravity >1.030 (1.005-1.030)
[2019-10-20 22:22] VITALS: TEMP 99.6
[2019-10-20 22:26] VITALS: BP 114/76; O2SAT 98
--- NOTE | 2019-10-22 15:28 | EKG ---
Test Date: 2019-10-20 Test Time: 13:57:57 [employer]: CHAVA MEASUREMENT RESULTS: Intervals: Rate: 81 [place]: 130 QRSD: 82 QT: 378 QTc: 439 [place]: P: 51 NJ: 130 QRS: 91 T: 82 INTERPRETIVE STATEMENTS: Normal sinus rhythm with sinus arrhythmia Rightward axis Borderline ECG Compared to ECG 06/27/2017 14:44:39 No significant changes Electronically Signed On 10-22-19 15:24:37 CDT by Venancio Cummings
== END 2019-10-20 16:30 | disposition home or self-care (01) ==
LOC: ER 11:36
DX: E86.0 Dehydration (principal); F17.210 Nicotine dependence, cigarettes, uncomplicated; Z91.030 Bee allergy status
CPT/HCPCS: 36415; 70450; 80048; 80076; 80307; 80320; 80329; 81003; 85025; 93005; 99284; J7030

== ENCOUNTER 2019-10-20 20:41 | Emergency (ER) | payer SELFPAY ==
--- OUTSIDE RECORDS SUMMARY | 2019-10-20 20:43 | XMS REPORT | Clinical Summary ---
:1995 Author Organization [facility] Address [address] [place] [address] Care Team Providers Name Role Phone Asked, [...] Advance Directives For more information, please contact: [phone] Type Date Recorded Patient Svp [employer] Explanati on Advance Directives, Living Will 06/27/2017 9:34 PM and Medical Power of Kiln Hand Code Status Date Activated Date Inactivated Comments Full Code 06/28/2017 10:01 AM 07/09/2017 10:43 PM Code Status decision reached by: Patient
--- NOTE | 2019-10-20 21:16 | ER ---
Nurse's Notes [facility] Name: Krzysztof Palomino Age: 23 yrs Sex: Male : 1995 Arrival Date: 10/20/2019 Time: 20:42 Bed External Waiting Private MD: Diagnosis: Anxiety disorder, unspecified;Attention-deficit hyperactivity disorders Presentation: 10/19 20:53 Chief complaint: Patient states: Got in a argument with his mom on the way home from ER ll1 today. Started screaming/acting out. Had a knife to the back of his neck like he was going to stab himself. States he just got in a fight with his mom. Denies suicidal thoughts and homicidal thoughts at this time. [facility] brought him in for mental health evaluation. Coronavirus screen: Patient denies a cough. Patient denies shortness of breath or difficulty breathing. Patient denies measured and/or subjective temperature greater than 100.4F prior to today's visit. Patient denies travel on a cruise ship or to a country the [facility] currently lists as an affected area. Patient denies contact with known and/or suspected case of COVID-19. Proceed with normal triage. Ebola Screen: Patient denies travel to an Ebola-affected area in the 21 days before illness onset. Initial Sepsis Screen: Does the patient meet any 2 criteria? HR > 90 bpm. No. Patient's initial sepsis screen is negative. Risk Assessment: Do you want to hurt yourself or someone else? Patient reports no desire to harm self or others. Onset of symptoms was October 20, 2019. 20:53 Method Of Arrival: Ambulatory ll1 20:53 Acuity: JERAMY 2 ll1 21:00 Initial Sepsis Screen: Does the patient have a suspected source of infection? No. sg Patient's initial sepsis screen is negative. Historical: - Allergies: 20:57 BEE STINGS; ll1 - PMHx: 20:57 ADD/ADHD; Anxiety; Bipolar disorder; PTSD; ll1 - PSHx: 20:57 None; ll1 - Immunization history:: Flu vaccine status is unknown. - Social history:: Smoking status: Patient denies any tobacco usage or history of. Patient/guardian denies using IV drugs. - Family history:: not pertinent. Screenin:01 Abuse screen: Denies threats or abuse. Denies injuries from another. Nutritional sg screening: No deficits noted. Tuberculosis screening: No symptoms or risk factors identified. Never had TB. Fall Risk None identified. Assessment: 21:00 Reassessment: [facility] health dept is here for patient evaluation and possible transport sg to mental health facility, pt cooperative with deputy at this time. 21:01 General: Appears in no apparent distress. well groomed, well developed, well nourished, sg Behavior is calm, cooperative, appropriate for age. Pain: Denies pain. Neuro: Level of Consciousness is awake, alert, obeys commands, Oriented to person, place, time, Moves all extremities. Gait is steady, Speech is normal, Facial symmetry appears normal. Cardiovascular: Heart tones S1 S2 present. Respiratory: Airway is patent Respiratory effort is even, unlabored, Respiratory pattern is regular, symmetrical. GI: No signs and/or symptoms were reported involving the gastrointestinal system. : No signs and/or symptoms were reported regarding the genitourinary system. EENT: No signs and/or symptoms were reported regarding the EENT system. Derm: Skin is pink, warm \T\ dry. Musculoskeletal: No signs and/or symptoms reported regarding the musculoskeletal system. Psych: 21:00 Subjective: Patient's mood is irritable, Delusions are denied, Hallucinations are sg denied Having thoughts of denies HI/SI. Objective: Patient is cooperative, irritable, Speech is normal, Affect is appropriate. Suicide Risk Assessment: Sad Person Scale: Sex of patient: Male: Score 1 point. Age of patient: Score 1 point if patient 15-34. Depression: Score 1 point if signs of depression are present. Previous Attempt: Score 0 point if patient has not previously attempted suicide. Substance Abuse: Score 0 point if patient does not abuse alcohol or drugs. Rational Thinking: Score 0 point if patient has rational thinking. Social Support: Score 0 if social support is present/available. Organized Plan: Score 0 if patient did not have an organized plan in place. Relationship: Score 1 point if patient is , , , or for a single male Chronic Sickness: Score 1 point if patient has illness, chronic, debilitating, or severe. TOTAL POINTS: If total points are 3-4, proposed clinical action is close follow-up/consider hospitalization. Safety Checks: [facility] has arrived to evaluate pt as per requested by pt mother. Patient uses marijuana one joint weekly. 21:15 Interventions: pt to be discharged from ED with mental health deputy for transport to mental health facility. Vital Signs: 20:53 BP 115 / 87; Pulse 128; Resp 18; Temp 98.7; Pulse Ox 99% ; Pain 0/10; ll1 ED Course: 20:42 Patient arrived in ED. ds1 20:51 Aby Ybarra RN is Primary Nurse. mt2 20:52 Nils Black PA is PHCP. cp 20:52 Nils Bingham MD is Attending Physician. cp 20:56 Triage completed. ll1 20:57 Arm band placed on Patient placed in an exam room, on a stretcher. ll1 21:00 Patient has correct armband on for positive identification. Bed in low position. Call sg light in reach. Pulse ox on. NIBP on. Warm blanket given. Head of bed elevated. 21:00 No provider procedures requiring assistance completed. Patient did not have IV access sg during this emergency room visit. 21:10 Nils Bingham MD is Attending Physician. michelle Administered Medications: No medications were administered Outcome: 21:00 Discharged to [employer] 21:00 Condition: good 21:00 Instructed on follow up and referral plans. safety practices, Demonstrated understanding of instructions. 21:15 Discharge ordered by . [facility] 21:16 Patient left the ED. Signatures: Aries Nagel, RN Nils Brody MD MD cha Sanford, Demi ds1 Nils Black PA PA cp Lewis, Lynsay, RN RN ll1 Aby Ybarra RN RN mt2
--- NOTE | 2019-10-20 21:16 | EDPHYS ---
Physician Documentation [facility] Name: Krzysztof Palomino Age: 23 yrs Sex: Male : 1995 Arrival Date: 10/20/2019 Time: 20:42 Bed External Waiting Private MD: ED Physician Nils Bingham HPI: 10/19 21:10 This 23 yrs old Male presents to ER via Ambulatory with complaints of Mental michelle Evaluation. 21:10 The patient presents to the emergency department with anxiety, depression. Onset: The michelle symptoms/episode began/occurred just prior to arrival. Past psychiatric history: Prior diagnosis: bipolar disorder, Psychiatric medications include: none. Associated signs and symptoms: Pertinent positives; anxiety, got upset. Severity of symptoms: At their worst the symptoms were moderate in the emergency department the symptoms have improved moderately. The patient has experienced similar episodes in the past, multiple times. Historical: - Allergies: 20:57 BEE STINGS; ll1 - PMHx: 20:57 ADD/ADHD; Anxiety; Bipolar disorder; PTSD; ll1 - PSHx: 20:57 None; ll1 - Immunization history:: Flu vaccine status is unknown. - Social history:: Smoking status: Patient denies any tobacco usage or history of. Patient/guardian denies using IV drugs. - Family history:: not pertinent. ROS: 21:10 Constitutional: Negative for fever, chills, and weight loss, Eyes: Negative for injury, michelle pain, redness, and discharge, ENT: Negative for injury, pain, and discharge, Neck: Negative for injury, pain, and swelling, Cardiovascular: Negative for chest pain, palpitations, and edema, Respiratory: Negative for shortness of breath, cough, wheezing, and pleuritic chest pain, Abdomen/GI: Negative for abdominal pain, nausea, vomiting, diarrhea, and constipation, Back: Negative for injury and pain, : Negative for injury, bleeding, discharge, and swelling, MS/Extremity: Negative for injury and deformity, Skin: Negative for injury, rash, and discoloration. 21:10 Neuro: Negative for altered mental status. 21:10 Psych: Positive for anxiety. Exam: 21:10 Constitutional: This is a well developed, well nourished patient who is awake, alert, michelle and in no acute distress. Head/Face: Normocephalic, atraumatic. Eyes: Pupils equal round and reactive to light, extra-ocular motions intact. Lids and lashes normal. Conjunctiva and sclera are non-icteric and not injected. Cornea within normal limits. Periorbital areas with no swelling, redness, or edema. ENT: Nares patent. No nasal discharge, no septal abnormalities noted. Tympanic membranes are normal and external auditory canals are clear. Oropharynx with no redness, swelling, or masses, exudates, or evidence of obstruction, uvula midline. Mucous membranes moist. Neck: Trachea midline, no thyromegaly or masses palpated, and no cervical lymphadenopathy. Supple, full range of motion without nuchal rigidity, or vertebral point tenderness. No Meningismus. Chest/axilla: Normal chest wall appearance and motion. Nontender with no deformity. No lesions are appreciated. Cardiovascular: Regular rate and rhythm with a normal S1 and S2. No gallops, murmurs, or rubs. Normal PMI, no JVD. No pulse deficits. Respiratory: Lungs have equal breath sounds bilaterally, clear to auscultation and percussion. No rales, rhonchi or wheezes noted. No increased work of breathing, no retractions or nasal flaring. Abdomen/GI: Soft, non-tender, with normal bowel sounds. No distension or tympany. No guarding or rebound. No evidence of tenderness throughout. Back: No spinal tenderness. No costovertebral tenderness. Full range of motion. Skin: Warm, dry with normal turgor. Normal color with no rashes, no lesions, and no evidence of cellulitis. MS/ Extremity: Pulses equal, no cyanosis. Neurovascular intact. Full, normal range of motion. Neuro: Awake and alert, GCS 15, oriented to person, place, time, and situation. Cranial nerves II-XII grossly intact. Motor strength 5/5 in all extremities. Sensory grossly intact. Cerebellar exam normal. Normal gait. 21:10 Psych: Behavior/mood is anxious, Affect is calm, Oriented to person, place, time, Patient has no thoughts/intents to harm self or others. Judgement / Insight is normal. Memory is normal. Delusions/hallucinations are not present. Vital Signs: 20:53 BP 115 / 87; Pulse 128; Resp 18; Temp 98.7; Pulse Ox 99% ; Pain 0/10; ll1 MDM: 20:54 Patient medically screened. cp 21:13 Differential diagnosis: drug withdrawal. acute psychotic break, depression, psychosis michelle secondary to non-compliance. Data reviewed: vital signs, nurses notes. Data interpreted: site monitor: rate is 128 beats/min, Pulse oximetry: on room air is 99 %. Counseling: I had a detailed discussion with the patient and/or guardian regarding: the historical points, exam findings, and any diagnostic results supporting the discharge/admit diagnosis, the need for outpatient follow up, for definitive care, a psychiatrist. ED course: pt stable, dc with mental health deputy. Administered Medications: No medications were administered Disposition: 10/20/19 21:15 Discharged to Home. Impression: Anxiety disorder, unspecified, Attention-deficit hyperactivity disorders. - Condition is Stable. - Discharge Instructions: Panic Attacks, Panic Attacks, [id number]. - Medication Reconciliation Form, Thank You Letter, Antibiotic Education, Prescription Opioid Use form. - Follow up: Private Physician; When: 2 - 3 days; Reason: Recheck today's complaints, Continuance of care, Re-evaluation by your physician. - Problem is new. - Symptoms have improved. Signatures: Aries Nagel RN RN Nils Spicer MD MD cha Page, Corey, PA PA cp Lewis, Lynsay RN RN ll1 Corrections: (The following items were deleted from the chart) 21:16 21:15 10/20/2019 21:15 Discharged to Home. Impression: Anxiety disorder, unspecified; sg Attention-deficit hyperactivity disorders. Condition is Stable. Forms are Medication Reconciliation Form, Thank You Letter, Antibiotic Education, Prescription Opioid Use. Follow up: Private Physician; When: 2 - 3 days; Reason: Recheck today's complaints, Continuance of care, Re-evaluation by your physician. Problem is new. Symptoms have improved. michelle
== END 2019-10-20 21:16 | disposition home or self-care (01) ==
LOC: ER 20:41
DX: F41.9 Anxiety disorder, unspecified (principal); F90.9 Attention-deficit hyperactivity disorder, unspecified type; Z91.030 Bee allergy status
CPT/HCPCS: 99283

== ENCOUNTER 2019-10-30 21:42 | Emergency (ER) | payer SELFPAY ==
--- OUTSIDE RECORDS SUMMARY | 2019-10-30 21:45 | XMS REPORT | Clinical Summary ---
:1995 Author Organization [facility] Address [address] [place] [address] Care Team Providers Name Role Phone Asked, [...] Not on file Results Not on fileafter 10/29/2018 Advance Directives For more information, please contact: [phone] Type Date Recorded Patient Emergency Communications Dispatcher Explanati on Advance Directives, Living Will 06/27/2017 9:34 PM and Medical Power of Comb Fixer Code Status Date Activated Date Inactivated Comments Full Code 06/28/2017 10:01 AM 07/09/2017 10:43 PM Code Status decision reached by: Patient
--- NOTE | 2019-10-30 22:19 | ER ---
Nurse's Notes [facility] Name: Krzysztof Palomino Age: 23 yrs Sex: Male : 1995 Arrival Date: 10/30/2019 Time: 21:53 Bed 17 Private MD: Diagnosis: Presentation: 10/29 22:00 Chief complaint: Patient states: Mood swings lately. Taking all psych meds as ll1 prescribed. Superficial cut to abdomen, states he woke up and noticed he had cut himself. Here last month for similar mood swings. Coronavirus screen: Client denies travel out of the [place] in the last 14 days. At this time, the client does not indicate any symptoms associated with coronavirus-19. Ebola Screen: Patient denies travel to an Ebola-affected area in the 21 days before illness onset. Initial Sepsis Screen: Does the patient meet any 2 criteria? HR > 90 bpm. Risk Assessment: Do you want to hurt yourself or someone else? Patient reports no desire to harm self or others. Onset of symptoms was October 30, 2019. 22:00 Method Of Arrival: Ambulatory ll1 22:00 Acuity: JERAMY 4 ll1 Historical: - Allergies: 22:02 BEE STINGS; ll1 - PMHx: 22:02 ADD/ADHD; Anxiety; Bipolar disorder; PTSD; ll1 - PSHx: 22:02 None; ll1 - Immunization history:: Flu vaccine is not up to date. - Social history:: Smoking status: Patient reports the use of cigarette tobacco products, smokes one pack cigarettes per day. Patient/guardian denies using alcohol, street drugs. Assessment: 22:11 Reassessment: Dr Chavez and this RN at bedside pt refused to cooperate, would not give bb reason why he came to the ED, pt refused lab work and diagnostics. Pt removed BP cuff and pulse ox and ambulated with steady gait to the exit. Vital Signs: 22:00 BP 110 / 85; Pulse 92; Resp 17; Temp 98.4; Pulse Ox 100% ; Pain 0/10; ll1 ED Course: 21:53 Patient arrived in ED. cl3 21:57 Cristobal Chavez MD is Attending Physician. tw4 22:02 Triage completed. ll1 22:03 Arm band placed on Patient placed in an exam room, on a stretcher. ll1 Administered Medications: No medications were administered Outcome: 22:18 Patient left the ED. ll1 Signatures: Izabel Tejada RN RN bb Cristobal Chavez MD MD tw4 Calos Yuen cl3 Muna Yuen RN RN ll1
--- NOTE | 2019-10-30 22:19 | EDPHYS ---
Physician Documentation [facility] Name: Krzysztof Palomino Age: 23 yrs Sex: Male : 1995 Arrival Date: 10/30/2019 Time: 21:53 Bed 17 Private MD: ED Physician Cristobal Chavez HPI: 10/29 22:11 This 23 yrs old Male presents to ER via Ambulatory with complaints of Psych 4 Problem. 22:11 The patient presents to the emergency department with " I need to be transferred to a [address] 22:11 Onset: The symptoms/episode began/occurred today. Past psychiatric history: Prior [facility] diagnosis: bipolar disorder. Severity of symptoms: At their worst the symptoms were mild in the emergency department the symptoms are unchanged. The patient has not experienced similar symptoms in the past. 22:16 Pt states that he wants to go to [facility]. However [facility] patient will not state why he wishes to go there. Pt refuses to give a chief complaint as to why he has sought treatment in the ED" just transport me to [facility]". Historical: - Allergies: 22:02 BEE STINGS; ll1 - PMHx: 22:02 ADD/ADHD; Anxiety; Bipolar disorder; PTSD; ll1 - PSHx: 22:02 None; ll1 - Immunization history:: Flu vaccine is not up to date. - Social history:: Smoking status: Patient reports the use of cigarette tobacco products, smokes one pack cigarettes per day. Patient/guardian denies using alcohol, street drugs. ROS: 22:11 Constitutional: Negative for fever, chills, and weight loss, Eyes: Negative for injury, tw4 pain, redness, and discharge, Cardiovascular: Negative for chest pain, palpitations, and edema, Respiratory: Negative for shortness of breath, cough, wheezing, and pleuritic chest pain, Abdomen/GI: Negative for abdominal pain, nausea, vomiting, diarrhea, and constipation, Back: Negative for injury and pain, MS/Extremity: Negative for injury and deformity. 22:11 Psych: Positive for depression, Negative for auditory hallucinations, visual hallucinations, homicidal ideation, insomnia, suicide gesture, suicidal ideation. Exam: 22:16 Constitutional: The patient appears unccoperative tw4 Vital Signs: 22:00 BP 110 / 85; Pulse 92; Resp 17; Temp 98.4; Pulse Ox 100% ; Pain 0/10; ll1 MDM: 21:57 Patient medically screened. tw4 22:16 Data reviewed: vital signs, nurses notes, and as a result, I will. ED course: I tw4 explained to pt that there is a process in the ED of evaluating medical and psychiatric conditions. Pt refused to let me continue with history and physical exam and states that he was leaving and did not want a laboratory evaluation or physical exam. Triage nurse noted that pt did not have suicidal ideation or homicidal ideation.. 10/29 21:57 Order name: EKG - Nurse/Tech 10/29 21:57 Order name: IV Saline Lock 10/29 21:57 Order name: Labs collected and sent 10/29 21:57 Order name: Urine Dipstick-Ancillary (obtain specimen) Administered Medications: No medications were administered Disposition: 10/30/19 22:18 Patient left the facility after being seen by provider. - Patient left due to unknown. Signatures: Dispatcher [employer] Cristobal Albarran MD MD tw4 Muna Yuen, RN RN ll1
[2019-10-30 22:26] VITALS: BP 110/85; TEMP 98.4; O2SAT 100
== END 2019-10-30 22:18 | disposition left against medical advice (07) ==
LOC: ER 21:42
DX: F99 Mental disorder, not otherwise specified (principal); F31.9 Bipolar disorder, unspecified; F17.210 Nicotine dependence, cigarettes, uncomplicated; Z91.030 Bee allergy status
CPT/HCPCS: 99281

== ENCOUNTER 2022-07-29 23:24 | Emergency (ER) | payer SELFPAY ==
--- OUTSIDE RECORDS SUMMARY | 2022-07-29 23:28 | XMS REPORT | Continuity of Care Document ---
:1995 Author Organization [facility] t Address [address] [place] [address] Care Team Providers Name Role Phone Asked, No Pcp Primary Care Physician Unavailable Emanuel Couch Attending Clinician Unavailable Clifton Alfred Attending Clinician Unavailable Rg Urias Attending Clinician Unavailable Rg Urias Attending Clinician Unavailable Clifton Alfred Attending Clinician Unavailable Clifton Alfred Attending Clinician Unavailable Tyrel Luque Attending Clinician Unavailable Tyrel Luque Attending Clinician Unavailable Letty Carlson Attending Clinician Unavailable Letty Carlson Attending Clinician Unavailable Rg Urias Admitting Clinician Unavailable Clifton Alfred Admitting Clinician Unavailable Tyrel Luque Admitting Clinician Unavailable Letty Carlson Admitting Clinician Unavailable Payers Payer Name Policy Type Policy Number Effective Date Expiration Date S ource Problems Condition Condition Condition Status Onset Resolution Last Treating Co mments Source Name Details Category Date Date Treatment Clinician Date Bipolar I Bipolar I Disease Active Met hodi disorder, disorder, 06-28 most most 00:00: [facility]osp[facility] recent recent 00 l episode episode mixed, mixed, severe severe with with psychotic psychotic features features Allergies, Adverse Reactions, Alerts Allergy Allergy Status Severity Reaction(s) Onset Inactive Treating Comm ents Source Name Type Date Date Clinician No [facility]: s 00 No Known DA Active U [facility] Drug 3-10 Allergie 00:00: s [address] Known Drug [facility] No Known Drug Active [facility] No Known Drug Active [facility] No Known Drug Active [facility] No Known [facility] No [facility] No [facility] No Known Drug [facility] No Known Drug [facility] No Known [facility] No [facility] No [facility] No [facility] Social History Social Habit Start Date Stop Date Quantity Comments Source Gender identity 2020-05-06 Identifies as Method ist 17:40:53 male gender [facility] (finding) Sexual orientation Method [facility] Sex Assigned At [birth year] M [facility] 00:00:00 00:00:00 Hospital Smoking Status Start Date Stop Date Source Tobacco smoking consumption unknown [facility] Medications This patient has no known medications. Vital Signs Vital Name Observation Time Observation Value Comments Source Height/Length Measured 2021-04-17 12:17:23 181 cm Weight Dosing 2021-04-17 12:17:23 58.96 kg Height/Length Measured 2021-04-17 12:17:11 181 cm Weight Dosing 2021-04-17 12:17:11 58.96 kg Height/Length Measured 2021-04-17 12:16:38 181 cm Weight Dosing 2021-04-17 12:16:38 58.96 kg Height/Length Measured 2021-04-17 12:14:44 181 cm Weight Dosing 2021-04-17 12:14:44 58.96 kg Height/Length Measured 2021-04-17 12:14:40 181 cm Weight Dosing 2021-04-17 12:14:40 58.96 kg Height/Length Measured 2021-04-17 12:14:36 181 cm Weight Dosing 2021-04-17 12:14:36 58.96 kg Height/Length Measured 2021-04-17 12:14:23 181 cm Weight Dosing 2021-04-17 12:14:23 58.96 kg Height/Length Measured 2021-04-17 12:14:21 181 cm Weight Dosing 2021-04-17 12:14:21 58.96 kg Height/Length Measured 2021-04-17 12:14:20 182.88 cm Weight Dosing 2021-04-17 12:14:20 58.96 kg Height/Length Measured 2019-12-05 14:55:46 Height/Length Measured 2021-04-17 11:36:49 180.3 cm Weight Dosing 2021-04-17 11:36:49 59.00 kg Height/Length Measured 2021-04-17 11:36:05 180.3 cm Weight Dosing 2021-04-17 11:36:05 59.00 kg Height/Length Measured 2021-04-17 11:32:47 180.3 cm Weight Dosing 2021-04-17 11:32:47 59.00 kg Height/Length Measured 2021-04-17 11:32:40 180.3 cm Weight Dosing 2021-04-17 11:32:40 59.00 kg Height/Length Measured 2021-04-17 11:31:07 180.3 cm Weight Dosing 2021-04-17 11:31:07 59.00 kg Height/Length Measured 2021-04-17 11:30:23 180.3 cm Weight Dosing 2021-04-17 11:30:23 59.00 kg Height/Length Measured 2021-04-17 11:30:22 180.3 cm Weight Dosing 2021-04-17 11:30:22 59.00 kg Height/Length Measured 2021-04-17 11:30:20 180.3 cm Weight Dosing 2021-04-17 11:30:20 59.00 kg Height/Length Measured 2021-04-17 11:30:19 180.3 cm Weight Dosing 2021-04-17 11:30:19 59.00 kg Height/Length Measured 2021-04-17 11:30:15 180.3 cm Weight Dosing 2021-04-17 11:30:15 59.00 kg Height/Length Measured 2019-10-21 10:25:59 Procedures This patient has no known procedures. Encounters Start End Encounter Admission Attending Care Care Encounter Source Date/Time Date/Time Type Type Clinicians Facility Department ID 2022-07-02 2022-07-02 Emergency Emergency Emanuel Couch [facility] JM [id number] [facility] 16:51:00 16:51:00 15 2022-07-02 2022-07-02 Emergency [facility] [id number] [facility] 16:51:00 16:51:00 15 2022-06-07 2022-06-07 Emergency Emergency Clifton Alfred [facility] [id number] [facility] 11:23:00 11:23:00 72 2022-06-07 2022-06-07 Emergency [facility] [id number] [facility] 11:23:00 11:23:00 72 2019-12-05 2019-12-08 Inpatient 1 Rg Urias [facility] [id number] 13:46:00 13:35:00 Rg Urias [facility] 2019-12-05 2019-12-05 Emergency 1 Clifton Alfred [facility] ERNIE [id number] 13:46:00 13:46:00 Clifton Alfred -[id number] [facility] 2019-10-20 2019-10-27 Inpatient 1 Tyrel Luque [facility] [id number]. 21:55:00 17:43:00 Tyrel Luque [facility] 2019-10-20 2019-10-20 Emergency 1 Letty Carlson [facility] [id number] 21:55:00 21:55:00 Letty Carlson -[id number] [address] [place] [address] Results Test Description Test Time Test Comments Results Result Comments Source Comprehensive Metabolic Panel 2022-07-02 17:25:00 Test Item Value Reference Range Interpretation Comme nts SODIUM (test code = NA) 140.0 mmol/L 136.0-145.0 N Potassium,K (test code = K) 4.2 mmol/L 3.0-5.1 N Chloride (test code = CL) 103 mmol/L 98-107 N Carbon Dioxide (test code = 25 mmol/L 20-31 N CO2) Anion Gap (test code = GAP) 12 mmol/L 5-15 N Blood Urea Nitrogen (test code 12 mg/dL 9-23 N = BUN) Creatinine (test code = CREATT) 0.95 mg/dL 0.55-1.02 N Creatinine Clr Calc Pharmacy 109.62 mL/min (test code = CRCLPHA) Estimated Glomerular Filt Rate 113 See_Comment Reported eGFR is based on (test code = EGFR.XX) the CK D-EPI 2020 equation thatdoes not us e a race coefficient. Ad ditional information can be found at:[id number] cb_egfr_sum mitchell_flyer5.pdf ([email or web address].org) [A utomated message] The sy stem which generated this result transmitted ref erence range: >=90 ml/ min/1.73m2. The reference r joslyn was not used to int erpret this result as hernesto l/abnormal. BUN/Creatinine Ratio (test code 13 ratio 10-20 N = BCRATIO) Glucose (test code = GLU) 93 mg/dL 74-106 N Osmolality,Calculated (test 289.2 code = OSMOC) Calcium (test code = CA) 10.3 mg/dL 8.3-10.6 N Bilirubin,Total (test code = 0.4 mg/dL 0.2-1.1 N BILIT) Aspartate Amino Transferase 14 U/L 0-34 N (test code = AST) Alanine Aminotransferase (test 8 U/L 10-49 L code = ALT) Total Protein (test code = TP) 7.5 g/dL 5.7-8.2 N Albumin Level (test code = ALB) 4.8 g/dL 3.2-4.8 N Globulin (test code = GLOB) 2.7 mg/dL 2.3-3.5 N Albumin/Globulin Ratio (test 1.8 ratio 0.8-2.0 N code = AGRATIO) Alkaline Phosphatase (test code 69 U/L 46-116 N = ALP) Ethanol [id number] 17:25:00 Test Item Value Reference Range Interpretation Comments Ethanol (test code 3 mg/dL The pharm acological = ETOH) response to blo od alcohol levels mayvary from individual to i ndividual. The fatal pam ntrationhas been reported t o be >400mg/dL. UA, Urinalysis Rflx Cult/[id number] 17:25:00 Test Item Value Reference Range Interpretation Comments Color,Urine (test code = UCOL) Yellow Yellow Clarity,Urine (test code = Clear Clear UCLAR) Ph, Urine (test code = UPH) 6.5 5.0-9.0 N Specific [place],Urine (test <= 1.005 1.005-1.030 N code = USG) Blood,Urine (test code = UBLD) Negative mg/dL Negative Protein,Urine (test code = Negative mg/dL Negative UPRO) Glucose,Urine (UA) (test code Negative mg/dL Negative = UGLU) Ketones,Urine (test code = Trace mg/dL Negative A UKET) Nitrate,Urine (test code = Negative Negative UNIT) Bilirubin,Urine (test code = Negative mg/dL Negative UBIL) Urobilinogen,Urine (test code 0.2 E.U./dL Normal = UURO) Leukocyte Esterase,Urine (test Negative mg/dL Negative code = ULEU) Complete Blood Count Auto [id number] 17:25:00 Test Item Value Reference Range Interpretation Comments White Blood Count (test code = 12.3 x10 3/uL 4.4-10.5 H WBCT) Red Blood Count (test code = 5.15 x10 6/uL 4.10-5.70 N RBC) Hemoglobin (test code = HGBT) 15.2 g/dL 13.4-17.4 N Hematocrit (test code = HCTT) 45.7 % 38.7-52.0 N Mean Corpuscular Volume (test 88.70 fL 80.00-100.00 N code = MCV) Mean Corpuscular Hemoglobin 29.5 pg 27.0-32.5 N (test code = MCH) Mean Corpuscular HGB Conc (test 33.30 g/dL 32.00-37.50 N code = MCHC) RDW Coefficient of Variation 15.6 % 11.5-14.5 H (test code = RDWCV) Platelet Count (test code = 237 x10 3/uL 140.0-440.0 N PLTT) Mean Platelet Volume (test code 11.2 fL = MPV) Immature Granulocytes % (Auto) 0.3 % 0.0-5.0 N (test code = IMMGRAN%) Neutrophils % (Auto) (test code 61.6 % 36.0-70.0 N = NE%) Lymphocytes % (Auto) (test code 28.4 % 12.0-44.0 N = LY%) Monocytes % (Auto) (test code = 8.4 % 0.0-11.0 N MO%) Eosinophils % (Auto) (test code 0.9 % 0.0-7.0 N = EO%) Basophils % (Auto) (test code = 0.4 % 0.0-2.0 N BA%) Immature Granulocytes # (Auto) 0.04 x10 3/uL (test code = IMMGRAN#) Neutrophils # (Auto) (test code 7.6 x10 3/uL 1.6-7.4 H = NE#) Lymphocytes # (Auto) (test code 3.49 x10 3/uL 0.50-4.60 N = LY#) Monocytes # (Auto) (test code = 1.03 x10 3/uL 0.00-1.20 N MO#) Eosinophils # (Auto) (test code 0.11 x10 3/uL 0.00-0.74 N = EO#) Basophils # (Auto) (test code = 0.05 x10 3/uL 0.00-0.21 N BA#) nRBC Abs (test code = NRBCA) 0 nRBC Pct (test code = NRBCP) 0 % Drug Screen,[id number] 17:25:00 Test Item Value Reference Range Interpretation Comments PCP Phencyclidine Screen,Urine (test Negative Negative code = PCPU) Amphetamine Screen,Urine (test code Negative Negative = AMPU) Methadone Screen,Urine (test code = Negative Negative METHU) Opiate Screen,Urine (test code = Negative Negative UOPIS) Barbituates Screen,Urine (test code Negative Negative = BARBU) Benzodiazepines Screen,Urine (test Negative Negative code = UBENZS) Cocaine Screen,Urine (test code = Negative Negative UCOCS) Cannabinoid Screen,Urine (test code Positive Negative A = UTHCS) Propoxyphene Screen, Urine (test Negative Negative code = UPROP) Complete Blood Count Auto [id number] 11:43:00 Test Item Value Reference Range Interpretation Comments White Blood Count (test code = 12.5 x10 3/uL 4.4-10.5 H WBCT) Red Blood Count (test code = 5.06 x10 6/uL 4.10-5.70 N RBC) Hemoglobin (test code = HGBT) 15.1 g/dL 13.4-17.4 N Hematocrit (test code = HCTT) 44.5 % 38.7-52.0 N Mean Corpuscular Volume (test 87.90 fL 80.00-100.00 N code = MCV) Mean Corpuscular Hemoglobin 29.8 pg 27.0-32.5 N (test code = MCH) Mean Corpuscular HGB Conc (test 33.90 g/dL 32.00-37.50 N code = MCHC) RDW Coefficient of Variation 15.5 % 11.5-14.5 H (test code = RDWCV) Platelet Count (test code = 256 x10 3/uL 140.0-440.0 N PLTT) Mean Platelet Volume (test code 11.0 fL = MPV) Immature Granulocytes % (Auto) 0.3 % 0.0-5.0 N (test code = IMMGRAN%) Neutrophils % (Auto) (test code 62.9 % 36.0-70.0 N = NE%) Lymphocytes % (Auto) (test code 25.0 % 12.0-44.0 N = LY%) Monocytes % (Auto) (test code = 10.0 % 0.0-11.0 N MO%) Eosinophils % (Auto) (test code 1.3 % 0.0-7.0 N = EO%) Basophils % (Auto) (test code = 0.5 % 0.0-2.0 N BA%) Immature Granulocytes # (Auto) 0.04 x10 3/uL (test code = IMMGRAN#) Neutrophils # (Auto) (test code 7.9 x10 3/uL 1.6-7.4 H = NE#) Lymphocytes # (Auto) (test code 3.11 x10 3/uL 0.50-4.60 N = LY#) Monocytes # (Auto) (test code = 1.24 x10 3/uL 0.00-1.20 H MO#) Eosinophils # (Auto) (test code 0.16 x10 3/uL 0.00-0.74 N = EO#) Basophils # (Auto) (test code = 0.06 x10 3/uL 0.00-0.21 N BA#) nRBC Abs (test code = NRBCA) 0 nRBC Pct (test code = NRBCP) 0 % UA, Urinalysis w [id number] 11:43:00 Test Item Value Reference Range Interpretation Comments Color,Urine (test code = UCOL) Yellow Yellow Clarity,Urine (test code = Clear Clear UCLAR) Ph, Urine (test code = UPH) 6.5 5.0-9.0 N Specific [place],Urine (test <= 1.005 1.005-1.030 N code = USG) Blood,Urine (test code = UBLD) Negative mg/dL Negative Protein,Urine (test code = Negative mg/dL Negative UPRO) Glucose,Urine (UA) (test code Negative mg/dL Negative = UGLU) Ketones,Urine (test code = Negative mg/dL Negative UKET) Nitrate,Urine (test code = Negative Negative UNIT) Bilirubin,Urine (test code = Negative mg/dL Negative UBIL) Urobilinogen,Urine (test code 0.2 E.U./dL Normal = UURO) Leukocyte Esterase,Urine (test Negative mg/dL Negative code = ULEU) RBC,Urine (test code = URBCUF) None Seen /HPF 0-2 WBC,Urine (test code = UWBCUF) None Seen /HPF 0-5 Epithelial Cell,Urine (test None Seen /HPF 0-5 code = UECUF) Casts,Urine (test code = None Seen /LPF None Seen UCASTUF) Bacteria,Urine (test code = None Seen /hpf None Seen UBACTUF) Drug Screen,[id number] 11:43:00 Test Item Value Reference Range Interpretation Comments PCP Phencyclidine Screen,Urine (test Negative Negative code = PCPU) Amphetamine Screen,Urine (test code Negative Negative = AMPU) Methadone Screen,Urine (test code = Negative Negative METHU) Opiate Screen,Urine (test code = Negative Negative UOPIS) Barbituates Screen,Urine (test code Negative Negative = BARBU) Benzodiazepines Screen,Urine (test Negative Negative code = UBENZS) Cocaine Screen,Urine (test code = Negative Negative UCOCS) Cannabinoid Screen,Urine (test code Positive Negative A = UTHCS) Propoxyphene Screen, Urine (test Negative Negative code = UPROP) Comprehensive Metabolic [id number] 11:43:00 Test Item Value Reference Range Interpretation Comments SODIUM (test code = NA) 141.0 mmol/L 136.0-145.0 N Potassium,K (test code = 3.8 mmol/L 3.0-5.1 N K) Chloride (test code = 108 mmol/L 98-107 H CL) Carbon Dioxide (test 26 mmol/L 20-31 N code = CO2) Anion Gap (test code = 7 mmol/L 5-15 N GAP) Blood Urea Nitrogen 9 mg/dL 9-23 N (test code = BUN) Creatinine (test code = 0.99 mg/dL 0.55-1.02 N CREATT) Creatinine Clr Calc 101.56 Pharmacy (test code = mL/min CRCLPHA) Estimated Glomerular 108 See_Comment Reporte d eGFR is Filt Rate (test code = based on the EGFR.XX) CKD-EPI 2021 equation thatdo es not use a race coefficient. Additional information can be found at:[id number] cb_ egfr_summary_fl ottoniel 5.pdf (kidney.o rg) [Automated message] The system which generated this result transmit adele reference range : >=90 ml/min/1.73m2. The reference range was not used to interpret this result as normal/abnormal . BUN/Creatinine Ratio 9 ratio 10-20 L (test code = BCRATIO) Glucose (test code = 94 mg/dL 74-106 N GLU) Osmolality,Calculated 290.2 (test code = OSMOC) Calcium (test code = CA) 9.4 mg/dL 8.3-10.6 N Bilirubin,Total (test 0.2 mg/dL 0.2-1.1 N code = BILIT) Aspartate Amino 17 U/L 0-34 N Transferase (test code = AST) Alanine Aminotransferase 14 U/L 10-49 N (test code = ALT) Total Protein (test code 7.1 g/dL 5.7-8.2 N = TP) Albumin Level (test code 4.8 g/dL 3.2-4.8 N = ALB) Globulin (test code = 2.3 mg/dL 2.3-3.5 N GLOB) Albumin/Globulin Ratio 2.1 ratio 0.8-2.0 H (test code = AGRATIO) Alkaline Phosphatase 75 U/L 46-116 N (test code = ALP) Ethanol [id number] 11:43:00 Test Item Value Reference Range Interpretation Comments Ethanol (test code 3 mg/dL The pharm acological = ETOH) response to blo od alcohol levels mayvary from individual to i ndividual. The fatal pam ntrationhas been reported t o be >400mg/dL. Coronavirus NAAT, [id number] 10:43:00 Test Item Value Reference Range Interpretation Comments Coronavirus NAAT, COVD19 Reference Range: (test code = Negative [id number]) Coronavirus NAAT, COVD19 ical-devices/emergenc (test code = s-zdf-jgmfvklezepsvf. [id number]) SARS-CoV-2 NAAT Result: Negative by RT-PCR (test code = SARS-CoV-2 NAAT Result:) Basic Metabolic [id number] 07:29:49 Test Item Value Reference Range Interpretation Comments Sodium Level (test code = Sodium 139.0 mmol/L 136.0-145.0 Level) Potassium Level (test code = 4.50 mmol/L 3.50-5.10 Potassium Level) Chloride Level (test code = 106.0 mmol/L 98.0-107.0 Chloride Level) CO2 (test code = CO2) 29 mmol/L 20-31 Anion Gap (test code = Anion 3.9 mmol/L 5.0-15.0 L Gap) BUN (test code = BUN) 15 mg/dL 9-23 Creatinine Level (test code = 0.74 mg/dL 0.70-1.30 Creatinine Level) BUN/Creat Ratio (test code = 20.3 ratio 10.0-20.0 H BUN/Creat Ratio) Glucose Level (test code = 101 mg/dL 74-106 Glucose Level) Calcium Level (test code = 9.5 mg/dL 8.3-10.6 Calcium Level) Hemolysis (test code = 0 mg/dL 8-11 Hemolysis) Icterus (test code = Icterus) 0 mg/dL 8-11 Lipemia (test code = Lipemia) 0 mg/dL 8-11 Basic Metabolic [id number] 07:29:49 Test Item Value Reference Range Interpretation Comments Sodium Level (test 139.0 mmol/L 136.0-145.0 code = Sodium Level) Potassium Level 4.50 mmol/L 3.50-5.10 (test code = Potassium Level) Chloride Level (test 106.0 mmol/L 98.0-107.0 code = Chloride Level) CO2 (test code = 29 mmol/L 20-31 CO2) Anion Gap (test code 3.9 mmol/L 5.0-15.0 L = Anion Gap) BUN (test code = 15 mg/dL 9-23 BUN) Creatinine Level 0.74 mg/dL 0.70-1.30 (test code = Creatinine Level) BUN/Creat Ratio 20.3 ratio 10.0-20.0 H (test code = BUN/Creat Ratio) Glucose Level (test 101 mg/dL 74-106 code = Glucose Level) Calcium Level (test 9.5 mg/dL 8.3-10.6 code = Calcium Level) eGFR AA (test code = >60 >=60 eGFR (e stimated eGFR AA) mL/min/1.73 m2 Glomerular Filtration Rate ) is an estimated va lue, calculated from the patient's serum creatinine usin g the MDRD equation. It is NOT the patient 's actual GFR. The eGFR provides a more clinically usef ul measure of kidn ey disease than se rum creatinine alone.This calculation mariel es sex and race in to account, if the information is provided. If th e race is not provided, and t he patient is -Estephanie n, multiply by 1.2 12. If sex is not provided, and t he patient is fema le, multiply by 0.7 42. Results for pat ients <18 years of ag e have not been validated by th e MDRD study and should be interpreted wit h caution. eGFR R esult Interpretation: eGFR > or = 60 is in the Normal RangeeGF R < 60 may mean kid adilene diseaseeGFR < 1 5 may mean kidney failure Rang es recommended by the National Kidney Foundation, http://nkdep.ni h.gov Hemolysis (test code 0 mg/dL 8-11 = Hemolysis) Icterus (test code = 0 mg/dL 8-11 Icterus) Lipemia (test code = 0 mg/dL 8-11 Lipemia) Basic Metabolic [id number] 07:29:49 Test Item Value Reference Range Interpretation Comments Sodium Level (test 139.0 mmol/L 136.0-145.0 code = Sodium Level) Potassium Level 4.50 mmol/L 3.50-5.10 (test code = Potassium Level) Chloride Level (test 106.0 mmol/L 98.0-107.0 code = Chloride Level) CO2 (test code = 29 mmol/L 20-31 CO2) Anion Gap (test code 3.9 mmol/L 5.0-15.0 L = Anion Gap) BUN (test code = 15 mg/dL 9-23 BUN) Creatinine Level 0.74 mg/dL 0.70-1.30 (test code = Creatinine Level) BUN/Creat Ratio 20.3 ratio 10.0-20.0 H (test code = BUN/Creat Ratio) Glucose Level (test 101 mg/dL 74-106 code = Glucose Level) Calcium Level (test 9.5 mg/dL 8.3-10.6 code = Calcium Level) eGFR AA (test code = >60 >=60 eGFR (e stimated eGFR AA) mL/min/1.73 m2 Glomerular Filtration Rate ) is an estimated va lue, calculated from the patient's serum creatinine usin g the MDRD equation. It is NOT the patient 's actual GFR. The eGFR provides a more clinically usef ul measure of kidn ey disease than se rum creatinine alone.This calculation mariel es sex and race in to account, if the information is provided. If th e race is not provided, and t he patient is -Estephanie n, multiply by 1.2 12. If sex is not provided, and t he patient is fema le, multiply by 0.7 42. Results for pat ients <18 years of ag e have not been validated by [facility] MDRD study and should be interpreted wit h caution. eGFR R esult Interpretation: eGFR > or = 60 is in the Normal RangeeGF R < 60 may mean kid adilene diseaseeGFR < 1 5 may mean kidney failure Rang es recommended by the National Kidney Foundation, http://nkdep.ni h.gov eGFR Non-AA (test >60.00 >=60.00 eGFR (gonzález mated code = eGFR Non-AA) mL/min/1.73 m2 Glomer ular Filtration Rate ) is an estimated va lue, calculated from the patient's serum creatinine usin g the MDRD equation. It is NOT the patient 's actual GFR. The eGFR provides a more clinically usef ul measure of kidn ey disease than se rum creatinine alone.This calculation mariel es sex and race in to account, if the information is provided. If th e race is not provided, and t he patient is -Estephanie n, multiply by 1.2 12. If sex is not provided, and t he patient is fema le, multiply by 0.7 42. Results for pat ients <18 years of ag e have not been validated by [facility] MDRD study and should be interpreted wit h caution. eGFR R esult Interpretation: eGFR > or = 60 is in the Normal RangeeGF R < 60 may mean kid adilene diseaseeGFR < 1 5 may mean kidney failure Rang es recommended by the National Kidney Foundation, http://nkdep.ni h.gov Hemolysis (test code 0 mg/dL 8-11 = Hemolysis) Icterus (test code = 0 mg/dL 8-11 Icterus) Lipemia (test code = 0 mg/dL 8-11 Lipemia) Automated [id number] 07:00:42 Test Item Value Reference Range Interpretation Comments Neutro Auto (test code = Neutro 49.3 % 36.0-70.0 Auto) Lymph Auto (test code = Lymph Auto) 37.0 % 12.0-44.0 Gratiot Auto (test code = Gratiot Auto) 10.9 % 0.0-11.0 Eos, Auto (test code = Eos, Auto) 1.6 % 0.0-7.0 Basophil Auto (test code = Basophil 0.5 % 0.0-2.0 Auto) Neutro Absolute (test code = Neutro 4.2 x10 1.6-7.4 Absolute) Lymph Absolute (test code = Lymph 3.19 x10 .50-4.60 Absolute) [place] Absolute (test code = Grat[place] .94 x10 .00-1.20 Absolute) Eos Absolute (test code = Eos 0.14 x10 0.00-0.74 Absolute) Baso Absolute (test code = Baso 0.04 x10 0.00-0.21 Absolute) IG [id number] 07:00:42 Test Item Value Reference Range Interpretation Comments IG (test code = IG) 0.7 % 0.0-5.0 IG Abs (test code = IG Abs) 0 x10 N Complete Blood Count with [id number] 07:00:41 Test Item Value Reference Range Interpretation Comments WBC (test code = WBC) 8.6 x10 4.4-10.5 RBC (test code = RBC) 4.62 x10 4.10-5.70 Hgb (test code = Hgb) 13.6 g/dL 13.4-17.4 Hct (test code = Hct) 41.2 % 38.7-52.0 MCV (test code = MCV) 89.20 fL 80.00-100.00 MCHC (test code = 33.00 g/dL 32.00-37.50 MCHC) RDW CV (test code = 14.9 % 11.5-14.5 H RDW CV) MCH (test code = MCH) 29.4 pg 27.0-32.5 Platelets (test code = 236.0 x10 140.0-440.0 Platelets) MPV (test code = MPV) 10.4 fL N Slide Review (test Auto Auto Result cr eated by code = Slide Review) GL_SJM_ SLIDE_REV_AUTO nRBC (test code = 0 N nRBC) NRBC Abs (test code = 0.00 x10 N NRBC Abs) RPR [id number] 13:37:55 Test Item Value Reference Range Interpretation Comments RPR Qual (test code = RPR Qual) Non-Reactive Non-Reactive Reactive Control (test code = Reactive Reactive Control) Weak Reactive Control (test Weak Reactive code = Weak Reactive Control) Non-Reactive Control (test code Non-Reactive = Non-Reactive Control) Lot # (test code = Lot #) [id number] N Expiration Dt (test code = 12-28-20 N Expiration Dt) Hemoglobin [id number] 07:39:20 Test Item Value Reference Range Interpretation Comments Hemoglobin A1c (test code 5.1 % 4.0-5.8 Di abetic >=6.5 = Hemoglobin A1c) %Prediabet es 5.7-6.4 %Normal <5.7 % Lipid [id number] 07:32:28 Test Item Value Reference Range Interpretation Comments Cholesterol Total 171 mg/dL N Low-risk l evel (test code = (desirable) - < 200 Cholesterol Total) mg/dlMode rate-risk level (borderli ne) - 200-239 mg/dlHigh-risk level - ?240 mg/dl Triglycerides (test 337 mg/dL N Normal - <150 code = Triglycerides) mg/dlB orderline high - 150-199 mg/dl High - 200-499 mg/dl Very high - ?500 mg/ dl HDL (test code = HDL) 50.70 mg/dL N Low-ri sk level (desirable) - ? 60 mg/dlHigh-risk level (undesirable) - <40 mg/dl LDL (test code = LDL) 53 mg/dL N The eq uation being used in this calculation is LDL = (Chol - HDL) - (Trig / 5) VLDL (test code = 67 mg/dL 5-40 H The equati on being VLDL) used in this calculation is VLDL = Trig / 5 Chol/HDL (test code = 3.4 ratio <=5.0 Chol/HDL) LDL/HDL Ratio (test 3 N The equa tion being code = LDL/HDL Ratio) used i n this calculation is LDL/HDL Ratio=L DL Calc/HDL Chol Thyroid Stimulating [id number] 07:32:28 Test Item Value Reference Range Interpretation Comments TSH (test code = TSH) 0.762 mcIU/mL 0.550-4.780 Urine [id number] 15:42:11 Test Item Value Reference Range Interpretation Comments Amphetamine Screen Ur Negative Negative The sp ecimen is (test code = presumptive pos itive Amphetamine Screen Ur) if th e analyte concentration i s equal to or greater t downs 1000 ng/ml.If confirmation of positive result is desired, please order Amphetamine Confirmation, U rine within 7 days. Barbiturate Screen Ur Negative Negative The sp ecimen is (test code = presumptive pos itive Barbiturate Screen Ur) if th e analyte concentration i s equal to or greater t downs 200 ng/ml.If confir mation of positive res ult is desired, please order Barbiturate Confirmation, U rine within 7 days. Benzodiazepines Ur Negative Negative The speci men is (test code = presumptive pos itive Benzodiazepines Ur) if the a nalyte concentration i s equal to or greater t downs 200 ng/ml.If confir mation of positive res ult is desired, please order Benzodiazephine Confirmation, U rine within 7 days. Cocaine Screen Ur (test Negative Negative The specimen is code = Cocaine Screen presum ptive positive Ur) if the analyte concentration i s equal to or greater t downs 300 ng/ml.If confir mation of positive res ult is desired, please order Cocaine Metabol ite Confirmation, U rine within 7 days. Opiate Screen Ur (test Negative Negative The s pecimen is code = Opiate Screen presump tive positive Ur) if the analyte concentration i s equal to or greater t downs 2000 ng/ml.If confirmation of positive result is desired, please order Opiate Confirma tion, Urine within 7 days. U PCP Scrn (test code = Negative Negative The specimen is U PCP Scrn) presumptive pos itive if the analyte concentration i s equal to or greater t downs 25 ng/ml.If confir mation of positive res ult is desired, please order Phencyclidine Confirmation, U rine within 7 days. Cannabinoid Screen Ur Positive Negative A The sp ecimen is (test code = presumptive pos itive Cannabinoid Screen Ur) if th e analyte concentration i s equal to or greater t downs 50 ng/ml.If confir mation of positive res ult is desired, please order Cannabinoid (TH C) Confirmation, U rine within 7 days. U Methadone Scr (test Negative Negative The sp ecimen is code = U Methadone Scr) pres umptive positive if the analyte concentration i s equal to or greater t downs 300 ng/ml.If confir mation of positive res ult is desired, please order Methadone Confirmation, U rine within 7 days. U Propoxyphene (test Negative Negative The spe cimen is code = U Propoxyphene) presu mptive positive if the analyte concentration i s equal to or greater t downs 300 ng/ml.If confir mation of positive res ult is desired, please order Propoxyphene Confirmation wi thin 7 days. Comprehensive Metabolic [id number] 15:02:03 Test Item Value Reference Range Interpretation Comments Sodium Level (test code = Sodium 144.0 mmol/L 136.0-145.0 Level) Potassium Level (test code = 3.90 mmol/L 3.50-5.10 Potassium Level) Chloride Level (test code = 112.0 mmol/L 98.0-107.0 H Chloride Level) CO2 (test code = CO2) 26 mmol/L 20-31 Anion Gap (test code = Anion 5.6 mmol/L 5.0-15.0 Gap) BUN (test code = BUN) 13 mg/dL 9-23 Creatinine Level (test code = 0.71 mg/dL 0.70-1.30 Creatinine Level) BUN/Creat Ratio (test code = 18.3 ratio 10.0-20.0 BUN/Creat Ratio) Glucose Level (test code = 116 mg/dL 74-106 H Glucose Level) Calcium Level (test code = 8.7 mg/dL 8.3-10.6 Calcium Level) Alk Phos (test code = Alk Phos) 133 U/L 46-116 H Bilirubin Total (test code = <0.2 mg/dL 0.2-1.1 Bilirubin Total) Albumin Level (test code = 4.1 g/dL 3.2-4.8 Albumin Level) Protein Total (test code = 6.1 g/dL 5.7-8.2 Protein Total) ALT (test code = ALT) 325 U/L 10-49 H AST (test code = AST) 142 U/L <=34 H Globulin (test code = Globulin) 2.0 g/dL 2.3-3.5 L A/G Ratio (test code = A/G 2.0 g/dL 0.8-2.0 Ratio) Hemolysis (test code = 0 g/dL 1-2 Hemolysis) Icterus (test code = Icterus) 0 g/dL 1-2 Lipemia (test code = Lipemia) 0 g/dL 1-2 Comprehensive Metabolic [id number] 15:02:03 Test Item Value Reference Range Interpretation Comments Sodium Level (test 144.0 mmol/L 136.0-145.0 code = Sodium Level) Potassium Level 3.90 mmol/L 3.50-5.10 (test code = Potassium Level) Chloride Level (test 112.0 mmol/L 98.0-107.0 H code = Chloride Level) CO2 (test code = 26 mmol/L 20-31 CO2) Anion Gap (test code 5.6 mmol/L 5.0-15.0 = Anion Gap) BUN (test code = 13 mg/dL 9-23 BUN) Creatinine Level 0.71 mg/dL 0.70-1.30 (test code = Creatinine Level) BUN/Creat Ratio 18.3 ratio 10.0-20.0 (test code = BUN/Creat Ratio) Glucose Level (test 116 mg/dL 74-106 H code = Glucose Level) Calcium Level (test 8.7 mg/dL 8.3-10.6 code = Calcium Level) Alk Phos (test code 133 U/L 46-116 H = Alk Phos) Bilirubin Total <0.2 mg/dL 0.2-1.1 (test code = Bilirubin Total) Albumin Level (test 4.1 g/dL 3.2-4.8 code = Albumin Level) Protein Total (test 6.1 g/dL 5.7-8.2 code = Protein Total) ALT (test code = 325 U/L 10-49 H ALT) AST (test code = 142 U/L <=34 H AST) Globulin (test code 2.0 g/dL 2.3-3.5 L = Globulin) A/G Ratio (test code 2.0 g/dL 0.8-2.0 = A/G Ratio) eGFR AA (test code = >60 >=60 eGFR (e stimated eGFR AA) mL/min/1.73 m2 Glomerular Filtration Rate ) is an estimated va lue, calculated from the patient's serum creatinine usin g the MDRD equation. It is NOT the patient 's actual GFR. The eGFR provides a more clinically usef ul measure of kidn ey disease than se rum creatinine alone.This calculation mariel es sex and race in to account, if the information is provided. If th e race is not provided, and t he patient is -Estephanie n, multiply by 1.2 12. If sex is not provided, and t he patient is fema le, multiply by 0.7 42. Results for pat ients <18 years of ag e have not been validated by th e MDRD study and should be interpreted wit h caution. eGFR R esult Interpretation: eGFR > or = 60 is in the Normal RangeeGF R < 60 may mean kid adilene diseaseeGFR < 1 5 may mean kidney failure Rang es recommended by the National Kidney Foundation, http://nkdep.ni h.gov Hemolysis (test code 0 g/dL 1-2 = Hemolysis) Icterus (test code = 0 g/dL 1-2 Icterus) Lipemia (test code = 0 g/dL 1-2 Lipemia) Alcohol [id number] 15:02:03 Test Item Value Reference Range Interpretation Comments Ethanol Level <3.0 mg/dL N The pharmacolo gical (test code = response to blo od alcohol Ethanol Level) levels may va ry from individual to i ndividual. The fatal pam ntration has been report ed to be >400 mg/dl. Comprehensive Metabolic [id number] 15:02:03 Test Item Value Reference Range Interpretation Comments Sodium Level (test 144.0 mmol/L 136.0-145.0 code = Sodium Level) Potassium Level 3.90 mmol/L 3.50-5.10 (test code = Potassium Level) Chloride Level (test 112.0 mmol/L 98.0-107.0 H code = Chloride Level) CO2 (test code = 26 mmol/L 20-31 CO2) Anion Gap (test code 5.6 mmol/L 5.0-15.0 = Anion Gap) BUN (test code = 13 mg/dL 9-23 BUN) Creatinine Level 0.71 mg/dL 0.70-1.30 (test code = Creatinine Level) BUN/Creat Ratio 18.3 ratio 10.0-20.0 (test code = BUN/Creat Ratio) Glucose Level (test 116 mg/dL 74-106 H code = Glucose Level) Calcium Level (test 8.7 mg/dL 8.3-10.6 code = Calcium Level) Alk Phos (test code 133 U/L 46-116 H = Alk Phos) Bilirubin Total <0.2 mg/dL 0.2-1.1 (test code = Bilirubin Total) Albumin Level (test 4.1 g/dL 3.2-4.8 code = Albumin Level) Protein Total (test 6.1 g/dL 5.7-8.2 code = Protein Total) ALT (test code = 325 U/L 10-49 H ALT) AST (test code = 142 U/L <=34 H AST) Globulin (test code 2.0 g/dL 2.3-3.5 L = Globulin) A/G Ratio (test code 2.0 g/dL 0.8-2.0 = A/G Ratio) eGFR AA (test code = >60 >=60 eGFR (e stimated eGFR AA) mL/min/1.73 m2 Glomerular Filtration Rate ) is an estimated va lue, calculated from the patient's serum creatinine usin g the MDRD equation. It is NOT the patient 's actual GFR. The eGFR provides a more clinically usef ul measure of kidn ey disease than se rum creatinine alone.This calculation mariel es sex and race in to account, if the information is provided. If th e race is not provided, and t he patient is -Estephanie n, multiply by 1.2 12. If sex is not provided, and t he patient is fema le, multiply by 0.7 42. Results for pat ients <18 years of ag e have not been validated by th e MDRD study and should be interpreted wit h caution. eGFR R esult Interpretation: eGFR > or = 60 is in the Normal RangeeGF R < 60 may mean kid adilene diseaseeGFR < 1 5 may mean kidney failure Rang es recommended by the National Kidney Foundation, http://nkdep.ni h.gov eGFR Non-AA (test >60.00 >=60.00 eGFR (gonzález mated code = eGFR Non-AA) mL/min/1.73 m2 Glomer ular Filtration Rate ) is an estimated va lue, calculated from the patient's serum creatinine usin g the MDRD equation. It is NOT the patient 's actual GFR. The eGFR provides a more clinically usef ul measure of kidn ey disease than se rum creatinine alone.This calculation mariel es sex and race in to account, if the information is provided. If th e race is not provided, and t he patient is -Estephanie n, multiply by 1.2 12. If sex is not provided, and t he patient is fema le, multiply by 0.7 42. Results for pat ients <18 years of ag e have not been validated by th e MDRD study and should be interpreted wit h caution. eGFR R esult Interpretation: eGFR > or = 60 is in the Normal RangeeGF R < 60 may mean kid adilene diseaseeGFR < 1 5 may mean kidney failure Rang es recommended by the National Kidney Foundation, http://nkdep.ni h.gov Hemolysis (test code 0 g/dL 1-2 = Hemolysis) Icterus (test code = 0 g/dL 1-2 Icterus) Lipemia (test code = 0 g/dL 1-2 Lipemia) Urinalysis with Culture, if [id number] 14:51:27 Test Item Value Reference Range Interpretation Comments UA Color (test code = UA Color) YELLO Yellow UA Appear (test code = UA CLEAR Clear Appear) UA pH (test code = UA pH) 7.0 UA Spec Grav (test code = UA 1.030 1.001-1.035 Spec Grav) UA Glucose (test code = UA NEG Negative Glucose) UA Bili (test code = UA Bili) NEG Negative UA Ketones (test code = UA NEG Negative Ketones) UA Blood (test code = UA Blood) NEG Negative UA Protein (test code = UA NEG Negative Protein) UA Urobilinogen (test code = UA .2 mg/dL >0.2 Urobilinogen) UA Nitrite (test code = UA NEG Negative Nitrite) UA Leuk Est (test code = UA NEG Negative Leuk Est) UA Micro Ind? (test code = UA Not Indicated Not Indicated Micro Ind?) IG [id number] 14:37:01 Test Item Value Reference Range Interpretation Comments IG (test code = IG) 0.5 % 0.0-5.0 IG Abs (test code = IG Abs) 0 x10 N Complete Blood Count with [id number] 14:37:00 Test Item Value Reference Range Interpretation Comments WBC (test code = WBC) 16.9 x10 4.4-10.5 H RBC (test code = RBC) 4.57 x10 4.10-5.70 Hgb (test code = Hgb) 13.3 g/dL 13.4-17.4 L MCV (test code = MCV) 92.30 fL 80.00-100.00 Hct (test code = Hct) 42.2 % 38.7-52.0 MCHC (test code = 31.50 g/dL 32.00-37.50 L MCHC) RDW CV (test code = 14.6 % 11.5-14.5 H RDW CV) MCH (test code = MCH) 29.1 pg 27.0-32.5 Platelets (test code = 241.0 x10 140.0-440.0 Platelets) MPV (test code = MPV) 10.6 fL N Slide Review (test Auto Auto Result cr eated by code = Slide Review) GL_SJM_ SLIDE_REV_AUTO nRBC (test code = 0 N nRBC) NRBC Abs (test code = 0.00 x10 N NRBC Abs) Automated [id number] 14:37:00 Test Item Value Reference Range Interpretation Comments Neutro Auto (test code = Neutro 79.2 % 36.0-70.0 H Auto) Lymph Auto (test code = Lymph Auto) 12.2 % 12.0-44.0 Gratiot Auto (test code = Gratiot Auto) 6.8 % 0.0-11.0 Eos, Auto (test code = Eos, Auto) 1.1 % 0.0-7.0 Basophil Auto (test code = Basophil 0.2 % 0.0-2.0 Auto) Neutro Absolute (test code = Neutro 13.4 x10 1.6-7.4 H Absolute) Lymph Absolute (test code = Lymph 2.05 x10 .50-4.60 Absolute) [place]at[place] Absolute (test code = Gratiot 1.14 x10 .00-1.20 Absolute) Eos Absolute (test code = Eos 0.19 x10 0.00-0.74 Absolute) Baso Absolute (test code = Baso 0.03 x10 0.00-0.21 Absolute) Urinalysis with Culture, if [id number] 08:48:36 Test Item Value Reference Range Interpretation Comments UA Color (test code = UA Color) YELLO Yellow UA Appear (test code = UA CLEAR Clear Appear) UA pH (test code = UA pH) 6.0 UA Spec Grav (test code = UA 1.010 1.001-1.035 Spec Grav) UA Glucose (test code = UA NEG Negative Glucose) UA Bili (test code = UA Bili) NEG Negative UA Ketones (test code = UA NEG Negative Ketones) UA Blood (test code = UA Blood) NEG Negative UA Protein (test code = UA NEG Negative Protein) UA Urobilinogen (test code = UA .2 mg/dL >0.2 Urobilinogen) UA Nitrite (test code = UA NEG Negative Nitrite) UA Leuk Est (test code = UA NEG Negative Leuk Est) UA Micro Ind? (test code = UA Not Indicated Not Indicated Micro Ind?) Complete Blood Count without [id number] 08:11:15 Test Item Value Reference Range Interpretation Comments WBC (test code = WBC) 8.5 x10 4.4-10.5 RBC (test code = RBC) 4.70 x10 4.10-5.70 Hgb (test code = Hgb) 13.9 g/dL 13.4-17.4 Hct (test code = Hct) 41.2 % 38.7-52.0 MCV (test code = MCV) 87.70 fL 80.00-100.00 MCH (test code = MCH) 29.6 pg 27.0-32.5 MCHC (test code = MCHC) 33.70 g/dL 32.00-37.50 RDW CV (test code = RDW CV) 14.9 % 11.5-14.5 H Platelets (test code = Platelets) 212.0 x10 140.0-440.0 MPV (test code = MPV) 11.2 fL N nRBC (test code = nRBC) 0 N NRBC Abs (test code = NRBC Abs) 0.00 x10 N IPF (test code = IPF) 0 % N Hemoglobin [id number] 19:29:19 Test Item Value Reference Range Interpretation Comments Hemoglobin A1c (test code 5.0 % 4.0-5.8 Di abetic >=6.5 = Hemoglobin A1c) %Prediabet es 5.7-6.4 %Normal <5.7 % RPR [id number] 15:51:31 Test Item Value Reference Range Interpretation Comments RPR Qual (test code = RPR Qual) Non-Reactive Non-Reactive Reactive Control (test code = Reactive Reactive Control) Weak Reactive Control (test Weak Reactive code = Weak Reactive Control) Non-Reactive Control (test code Non-Reactive = Non-Reactive Control) Lot # (test code = Lot #) [id number] N Expiration Dt (test code = 12-28-2020 N Expiration Dt) Lipid [id number] 09:02:54 Test Item Value Reference Range Interpretation Comments Cholesterol Total 103 mg/dL N Low-risk l evel (test code = (desirable) - < 200 Cholesterol Total) mg/dlMode rate-risk level (borderli ne) - 200-239 mg/dlHigh-risk level - ?240 mg/dl Triglycerides (test 48 mg/dL N Normal - <150 code = Triglycerides) mg/dlB orderline high - 150-199 mg/dl High - 200-499 mg/dl Very high - ?500 mg/ dl HDL (test code = HDL) 33.30 mg/dL N Low-ri sk level (desirable) - ? 60 mg/dlHigh-risk level (undesirable) - <40 mg/dl LDL (test code = LDL) 60 mg/dL N The eq uation being used in this calculation is LDL = (Chol - HDL) - (Trig / 5) VLDL (test code = 10 mg/dL 5-40 The equati on being VLDL) used in this calculation is VLDL = Trig / 5 Chol/HDL (test code = 3.1 ratio <=5.0 Chol/HDL) LDL/HDL Ratio (test 3 N The equa tion being code = LDL/HDL Ratio) used i n this calculation is LDL/HDL Ratio=L DL Calc/HDL Chol Thyroid Stimulating [id number] 09:02:54 Test Item Value Reference Range Interpretation Comments TSH (test code = TSH) 0.689 mcIU/mL 0.550-4.780 Troponin [id number] 08:59:33 Test Item Value Reference Range Interpretation Comments Troponin-I (test 3 pg/mL <=45 The 99th pe rcentile URL for code = Troponin-I) the assay is <45 pg/ml. A rise and fall i n Troponin I with at least o ne value above the 99th percentile with clinical e vidence of myocardial isch emia would support a diagn osis of AMI. A delta of at l east 20% is recommended to assess acute changes in resu lts above the 99th percen tile in serial measurem ents. Serial cardiac troponi n measurements ar e recommended at 0, 3, 6 hours. Complete Blood Count with [id number] 04:10:26 Test Item Value Reference Range Interpretation Comments WBC (test code = WBC) 18.6 x10 4.4-10.5 H RBC (test code = RBC) 4.30 x10 4.10-5.70 Hgb (test code = Hgb) 12.7 g/dL 13.4-17.4 L MCV (test code = MCV) 88.40 fL 80.00-100.00 Hct (test code = Hct) 38.0 % 38.7-52.0 L MCHC (test code = 33.40 g/dL 32.00-37.50 MCHC) RDW CV (test code = 15.1 % 11.5-14.5 H RDW CV) MCH (test code = MCH) 29.5 pg 27.0-32.5 Platelets (test code = 187.0 x10 140.0-440.0 Platelets) MPV (test code = MPV) 11.5 fL N Slide Review (test Auto Auto Result cr eated by code = Slide Review) GL_SJM_ SLIDE_REV_AUTO nRBC (test code = 0 N nRBC) NRBC Abs (test code = 0.00 x10 N NRBC Abs) IPF (test code = IPF) 0 % N Automated [id number] 04:10:26 Test Item Value Reference Range Interpretation Comments Neutro Auto (test code = Neutro 78.2 % 36.0-70.0 H Auto) Lymph Auto (test code = Lymph Auto) 14.3 % 12.0-44.0 Gratiot Auto (test code = Gratiot Auto) 6.4 % 0.0-11.0 Eos, Auto (test code = Eos, Auto) 0.4 % 0.0-7.0 Basophil Auto (test code = Basophil 0.3 % 0.0-2.0 Auto) Neutro Absolute (test code = Neutro 14.6 x10 1.6-7.4 H Absolute) Lymph Absolute (test code = Lymph 2.67 x10 .50-4.60 Absolute) [place] Absolute (test code = [place]at[place] 1.20 x10 .00-1.20 Absolute) Eos Absolute (test code = Eos 0.08 x10 0.00-0.74 Absolute) Baso Absolute (test code = Baso 0.05 x10 0.00-0.21 Absolute) IG [id number] 04:10:26 Test Item Value Reference Range Interpretation Comments IG (test code = IG) 0.4 % 0.0-5.0 IG Abs (test code = IG Abs) 0 x10 N Novel Coronavirus SARS-CoV-2, [id number] 02:21:36 Test Item Value Reference Range Interpretation Comments SARS-CoV-2 PCR NEGATIVE Negative Positive resu lts are (test code = indicative of a ctive SARS-CoV-2 PCR) infection wi th SARS-CoV-2; clinical correl ation with patient history and other diagnostic info rmation is necessary to de termine patient infecti on status.Presumpt delano positive result s -INTERPRET WITH CAUTION: Result may not reflect if margi ent is actually positi ve. Patient should be treat ed based on clinical suspic ions. Negative result s do not preclude SARS-C oV-2 infection and s hould not be used as the sole basis for treatment o r other patient managem ent decisions. Nega tive results must be combined with clinical observations, p atient history, and epidemiological information.The Xpert Xpress SARS-CoV -2 test is only for use un joaquin the Food and Drug Administration s Emergency Use Authorization." Urine DOA [id number] 00:05:00 Test Item Value Reference Range Interpretation Comments Amphetamine Screen Ur Negative Negative The sp ecimen is (test code = presumptive pos itive Amphetamine Screen Ur) if th e analyte concentration i s equal to or greater t downs 1000 ng/ml.If confirmation of positive result is desired, please order Amphetamine Confirmation, U rine within 7 days. Barbiturate Screen Ur Negative Negative The sp ecimen is (test code = presumptive pos itive Barbiturate Screen Ur) if th e analyte concentration i s equal to or greater t downs 200 ng/ml.If confir mation of positive res ult is desired, please order Barbiturate Confirmation, U rine within 7 days. Benzodiazepines Ur Negative Negative The speci men is (test code = presumptive pos itive Benzodiazepines Ur) if the a nalyte concentration i s equal to or greater t downs 200 ng/ml.If confir mation of positive res ult is desired, please order Benzodiazephine Confirmation, U rine within 7 days. Cocaine Screen Ur (test Negative Negative The specimen is code = Cocaine Screen presum ptive positive Ur) if the analyte concentration i s equal to or greater t downs 300 ng/ml.If confir mation of positive res ult is desired, please order Cocaine Metabol ite Confirmation, U rine within 7 days. Opiate Screen Ur (test Negative Negative The s pecimen is code = Opiate Screen presump tive positive Ur) if the analyte concentration i s equal to or greater t downs 2000 ng/ml.If confirmation of positive result is desired, please order Opiate Confirma tion, Urine within 7 days. U PCP Scrn (test code = Negative Negative The specimen is U PCP Scrn) presumptive pos itive if the analyte concentration i s equal to or greater t downs 25 ng/ml.If confir mation of positive res ult is desired, please order Phencyclidine Confirmation, U rine within 7 days. Cannabinoid Screen Ur Positive Negative A The sp ecimen is (test code = presumptive pos itive Cannabinoid Screen Ur) if th e analyte concentration i s equal to or greater t downs 50 ng/ml.If confir mation of positive res ult is desired, please order Cannabinoid (TH C) Confirmation, U rine within 7 days. U Methadone Scr (test Negative Negative The sp ecimen is code = U Methadone Scr) pres umptive positive if the analyte concentration i s equal to or greater t downs 300 ng/ml.If confir mation of positive res ult is desired, please order Methadone Confirmation, U rine within 7 days. U Propoxyphene (test Negative Negative The spe cimen is code = U Propoxyphene) presu mptive positive if the analyte concentration i s equal to or greater t downs 300 ng/ml.If confir mation of positive res ult is desired, please order Propoxyphene Confirmation wi thin 7 days. Alcohol [id number] 00:02:46 Test Item Value Reference Range Interpretation Comments Ethanol Level 4.1 mg/dL N The pharmacolo gical (test code = response to blo od alcohol Ethanol Level) levels may va ry from individual to i ndividual. The fatal pam ntration has been report ed to be >400 mg/dl. Comprehensive Metabolic [id number] 00:02:45 Test Item Value Reference Range Interpretation Comments Sodium Level (test code = Sodium 143.0 mmol/L 136.0-145.0 Level) Potassium Level (test code = 3.50 mmol/L 3.50-5.10 Potassium Level) Chloride Level (test code = 106.0 mmol/L 98.0-107.0 Chloride Level) CO2 (test code = CO2) 26 mmol/L 20-31 Anion Gap (test code = Anion 10.8 mmol/L 5.0-15.0 Gap) BUN (test code = BUN) 14 mg/dL 9-23 Creatinine Level (test code = 1.02 mg/dL 0.70-1.30 Creatinine Level) BUN/Creat Ratio (test code = 13.7 ratio 10.0-20.0 BUN/Creat Ratio) Glucose Level (test code = 111 mg/dL 74-106 H Glucose Level) Calcium Level (test code = 8.9 mg/dL 8.3-10.6 Calcium Level) Alk Phos (test code = Alk Phos) 71 U/L 46-116 Bilirubin Total (test code = 0.3 mg/dL 0.2-1.1 Bilirubin Total) Albumin Level (test code = 4.1 g/dL 3.2-4.8 Albumin Level) Protein Total (test code = 6.6 g/dL 5.7-8.2 Protein Total) ALT (test code = ALT) 10 U/L 10-49 AST (test code = AST) 18 U/L <=34 Globulin (test code = Globulin) 2.5 g/dL 2.3-3.5 A/G Ratio (test code = A/G 1.6 g/dL 0.8-2.0 Ratio) Hemolysis (test code = 0 g/dL 1-2 Hemolysis) Icterus (test code = Icterus) 0 g/dL 1-2 Lipemia (test code = Lipemia) 0 g/dL 1-2 Comprehensive Metabolic [id number] 00:02:45 Test Item Value Reference Range Interpretation Comments Sodium Level (test 143.0 mmol/L 136.0-145.0 code = Sodium Level) Potassium Level 3.50 mmol/L 3.50-5.10 (test code = Potassium Level) Chloride Level (test 106.0 mmol/L 98.0-107.0 code = Chloride Level) CO2 (test code = 26 mmol/L 20-31 CO2) Anion Gap (test code 10.8 mmol/L 5.0-15.0 = Anion Gap) BUN (test code = 14 mg/dL 9-23 BUN) Creatinine Level 1.02 mg/dL 0.70-1.30 (test code = Creatinine Level) BUN/Creat Ratio 13.7 ratio 10.0-20.0 (test code = BUN/Creat Ratio) Glucose Level (test 111 mg/dL 74-106 H code = Glucose Level) Calcium Level (test 8.9 mg/dL 8.3-10.6 code = Calcium Level) Alk Phos (test code 71 U/L 46-116 = Alk Phos) Bilirubin Total 0.3 mg/dL 0.2-1.1 (test code = Bilirubin Total) Albumin Level (test 4.1 g/dL 3.2-4.8 code = Albumin Level) Protein Total (test 6.6 g/dL 5.7-8.2 code = Protein Total) ALT (test code = 10 U/L 10-49 ALT) AST (test code = 18 U/L <=34 AST) Globulin (test code 2.5 g/dL 2.3-3.5 = Globulin) A/G Ratio (test code 1.6 g/dL 0.8-2.0 = A/G Ratio) eGFR AA (test code = >60 >=60 eGFR (e stimated eGFR AA) mL/min/1.73 m2 Glomerular Filtration Rate ) is an estimated va lue, calculated from the patient's serum creatinine usin g the MDRD equation. It is NOT the patient 's actual GFR. The eGFR provides a more clinically usef ul measure of kidn ey disease than se rum creatinine alone.This calculation mariel es sex and race in to account, if the information is provided. If th e race is not provided, and t he patient is -Estephanie n, multiply by 1.2 12. If sex is not provided, and t he patient is fema le, multiply by 0.7 42. Results for pat ients <18 years of ag e have not been validated by th e MDRD study and should be interpreted wit h caution. eGFR R esult Interpretation: eGFR > or = 60 is in the Normal RangeeGF R < 60 may mean kid adilene diseaseeGFR < 1 5 may mean kidney failure Rang es recommended by the National Kidney Foundation, http://nkdep.ni h.gov Hemolysis (test code 0 g/dL 1-2 = Hemolysis) Icterus (test code = 0 g/dL 1-2 Icterus) Lipemia (test code = 0 g/dL 1-2 Lipemia) Comprehensive Metabolic [id number] 00:02:45 Test Item Value Reference Range Interpretation Comments Sodium Level (test 143.0 mmol/L 136.0-145.0 code = Sodium Level) Potassium Level 3.50 mmol/L 3.50-5.10 (test code = Potassium Level) Chloride Level (test 106.0 mmol/L 98.0-107.0 code = Chloride Level) CO2 (test code = 26 mmol/L 20-31 CO2) Anion Gap (test code 10.8 mmol/L 5.0-15.0 = Anion Gap) BUN (test code = 14 mg/dL 9-23 BUN) Creatinine Level 1.02 mg/dL 0.70-1.30 (test code = Creatinine Level) BUN/Creat Ratio 13.7 ratio 10.0-20.0 (test code = BUN/Creat Ratio) Glucose Level (test 111 mg/dL 74-106 H code = Glucose Level) Calcium Level (test 8.9 mg/dL 8.3-10.6 code = Calcium Level) Alk Phos (test code 71 U/L 46-116 = Alk Phos) Bilirubin Total 0.3 mg/dL 0.2-1.1 (test code = Bilirubin Total) Albumin Level (test 4.1 g/dL 3.2-4.8 code = Albumin Level) Protein Total (test 6.6 g/dL 5.7-8.2 code = Protein Total) ALT (test code = 10 U/L 10-49 ALT) AST (test code = 18 U/L <=34 AST) Globulin (test code 2.5 g/dL 2.3-3.5 = Globulin) A/G Ratio (test code 1.6 g/dL 0.8-2.0 = A/G Ratio) eGFR AA (test code = >60 >=60 eGFR (e stimated eGFR AA) mL/min/1.73 m2 Glomerular Filtration Rate ) is an estimated va lue, calculated from the patient's serum creatinine usin g the MDRD equation. It is NOT the patient 's actual GFR. The eGFR provides a more clinically usef ul measure of kidn ey disease than se rum creatinine alone.This calculation mariel es sex and race in to account, if the information is provided. If th e race is not provided, and t he patient is -Estephanie n, multiply by 1.2 12. If sex is not provided, and t he patient is fema le, multiply by 0.7 42. Results for pat ients <18 years of ag e have not been validated by [facility] MDRD study and should be interpreted wit h caution. eGFR R esult Interpretation: eGFR > or = 60 is in the Normal RangeeGF R < 60 may mean kid adilene diseaseeGFR < 1 5 may mean kidney failure Rang es recommended by the National Kidney Foundation, http://nkdep.ni h.gov eGFR Non-AA (test >60.00 >=60.00 eGFR (gonzález mated code = eGFR Non-AA) mL/min/1.73 m2 Glomer ular Filtration Rate ) is an estimated va lue, calculated from the patient's serum creatinine usin g the MDRD equation. It is NOT the patient 's actual GFR. The eGFR provides a more clinically usef ul measure of kidn ey disease than se rum creatinine alone.This calculation mariel es sex and race in to account, if the information is provided. If th e race is not provided, and t he patient is -Estephanie n, multiply by 1.2 12. If sex is not provided, and t he patient is fema le, multiply by 0.7 42. Results for pat ients <18 years of ag e have not been validated by [facility] MDRD study and should be interpreted wit h caution. eGFR R esult Interpretation: eGFR > or = 60 is in the Normal RangeeGF R < 60 may mean kid adilene diseaseeGFR < 1 5 may mean kidney failure Rang es recommended by the National Kidney Foundation, http://nkdep.ni h.gov Hemolysis (test code 0 g/dL 1-2 = Hemolysis) Icterus (test code = 0 g/dL 1-2 Icterus) Lipemia (test code = 0 g/dL 1-2 Lipemia) Automated [id number] 23:07:32 Test Item Value Reference Range Interpretation Comments Neutro Auto (test code = Neutro 78.3 % 36.0-70.0 H Auto) Lymph Auto (test code = Lymph Auto) 13.6 % 12.0-44.0 Gratiot Auto (test code = Gratiot Auto) 7.0 % 0.0-11.0 Eos, Auto (test code = Eos, Auto) 0.3 % 0.0-7.0 Basophil Auto (test code = Basophil 0.4 % 0.0-2.0 Auto) Neutro Absolute (test code = Neutro 15.1 x10 1.6-7.4 H Absolute) Lymph Absolute (test code = Lymph 2.61 x10 .50-4.60 Absolute) Gratiot Absolute (test code = Gratiot 1.34 x10 .00-1.20 H Absolute) Eos Absolute (test code = Eos 0.05 x10 0.00-0.74 Absolute) Baso Absolute (test code = Baso 0.08 x10 0.00-0.21 Absolute) IG [id number] 23:07:32 Test Item Value Reference Range Interpretation Comments IG (test code = IG) 0.4 % 0.0-5.0 IG Abs (test code = IG Abs) 0 x10 N Complete Blood Count with [id number] 23:07:31 Test Item Value Reference Range Interpretation Comments WBC (test code = WBC) 19.2 x10 4.4-10.5 H RBC (test code = RBC) 4.67 x10 4.10-5.70 Hgb (test code = Hgb) 13.2 g/dL 13.4-17.4 L Hct (test code = Hct) 41.8 % 38.7-52.0 MCV (test code = MCV) 89.50 fL 80.00-100.00 MCHC (test code = 31.60 g/dL 32.00-37.50 L MCHC) MCH (test code = MCH) 28.3 pg 27.0-32.5 RDW CV (test code = 15.0 % 11.5-14.5 H RDW CV) Platelets (test code = 225.0 x10 140.0-440.0 Platelets) MPV (test code = MPV) 11.0 fL N Slide Review (test Auto Auto Result cr eated by code = Slide Review) GL_SJM_ SLIDE_REV_AUTO nRBC (test code = 0 N nRBC) NRBC Abs (test code = 0.00 x10 N NRBC Abs) IPF (test code = IPF) 0 % N
[2022-07-30 00:29] LABS: Specific Gravity 1.009 (1.005-1.030); Urine Bilirubin NEGATIVE (Negative); Urine Blood Negative (Negative); Urine Clarity Clear (Clear); Urine Color Colorless (Yellow); Urine Glucose NEGATIVE (Negative); Urine Protein NEGATIVE (Negative); Urine Urobilinogen Normal (Normal)
[2022-07-30 00:33] LABS: Absolute Lymphocytes (CBC) 2.7 K/uL (0.7-4.9); Hematocrit 41.4 % (39.6-49.0); Lymphocytes % 17.5 % (15.3-44.8); MCV 86.4 fL (80-100); MPV 8.2 fL (7.6-11.3); RBC Red Blood Cell Count 4.79 M/uL (4.33-5.43)
[2022-07-30 00:45] LABS: Barbiturates NEGATIVE (NEGATIVE); Benzodiazepines NEGATIVE (NEGATIVE); Cocaine NEGATIVE (NEGATIVE); METHAMPHETAM NEGATIVE (NEGATIVE); Methadone NEGATIVE (NEGATIVE); Opiates NEGATIVE (NEGATIVE); Phencyclidine NEGATIVE (NEGATIVE); THC Cannibis NEGATIVE (NEGATIVE)
[2022-07-30 00:49] LABS: Protime INR 1.01
[2022-07-30 00:51] LABS: ALT/SGPT 33 U/L (16-61); AST/SGOT 14 U/L (15-37); Albumin 3.9 g/dL (3.4-5.0); Alkaline Phosphatase 75 U/L (45-117); BUN Blood Urea Nitrogen 18 mg/dL (7-18); Bicarbonate 28 mEq/L (21-32); Bilirubin Direct 0.1 mg/dL (0-0.2); Bilirubin Total 0.3 mg/dL (0.2-1.0); Glomerular Filtration Rate 97 ml/min (=/>90); Glucose Level 124 mg/dL (74-106); Potassium 3.7 mEq/L (3.5-5.1); Protein, Total 7.2 g/dL (6.4-8.2); Sodium Level 135 mEq/L (136-145)
--- NOTE | 2022-07-30 03:10 | ER ---
Nurse's Notes [facility] Name: rKzysztof Palomino Age: 26 yrs Sex: Male : 1995 Arrival Date: 07/29/2022 Time: 23:24 Bed 17 Private MD: Diagnosis: Suicidal ideations Presentation: 07/29 23:40 Chief complaint: Needs [facility] evaluation, just released from [facility] after being vc1 admitted for a few months. His mom called for suicidal ideation. Coronavirus screen: Vaccine status: Patient reports being unvaccinated. Client denies travel out of the [place] in the last 14 days. At this time, the client does not indicate any symptoms associated with coronavirus-19. Ebola Screen: Patient negative for fever greater than or equal to 101.5 degrees Fahrenheit, and additional compatible Ebola Virus Disease symptoms Patient denies exposure to infectious person. Patient denies travel to an Ebola-affected area in the 21 days before illness onset. No symptoms or risks identified at this time. Initial Sepsis Screen: Does the patient meet any 2 criteria? No. Patient's initial sepsis screen is negative. Does the patient have a suspected source of infection? No. Patient's initial sepsis screen is negative. Risk Assessment: Do you want to hurt yourself or someone else? Patient reports no desire to harm self or others. Onset of symptoms is unknown. 23:40 Method Of Arrival: Law Enforcement: Bill HANKS vc1 23:40 Acuity: JERAMY 2 vc1 Triage Assessment: 23:46 General: Appears in no apparent distress. uncomfortable, Behavior is calm, cooperative, vc1 appropriate for age. Pain: Denies pain. EENT: No deficits noted. Neuro: Level of Consciousness is awake, alert, obeys commands, Oriented to person, place, time, situation, Appropriate for age. Cardiovascular: No deficits noted. Respiratory: Airway is patent Respiratory effort is even, unlabored, Respiratory pattern is regular, symmetrical. GI: No deficits noted. No signs and/or symptoms were reported involving the gastrointestinal system. : No deficits noted. No signs and/or symptoms were reported regarding the genitourinary system. Derm: No deficits noted. No signs and/or symptoms reported regarding the dermatologic system. Musculoskeletal: No deficits noted. No signs and/or symptoms reported regarding the musculoskeletal system. Historical: - Allergies: 23:45 BEE STINGS; vc1 - Home Meds: 23:45 Depakote 500 mg Oral TbEC 3 tabs nightly [Active]; hydroxyzine HCl 50 mg Oral tab 1 tab vc1 q 6 hrs prn [Active]; Risperdal 1 mg in the am and 2 mg in the pm Oral [Active]; Zyprexa 10 mg Oral tab 2 tabs nightly [Active]; - PMHx: 23:45 ADD/ADHD; Anxiety; Bipolar disorder; PTSD; vc1 - PSHx: 23:45 None; vc1 - Immunization history:: Client reports having NOT received the Covid vaccine. - Social history:: Smoking status: Patient/guardian denies using tobacco, Stopped _ months ago 1. - Family history:: not pertinent. Screenin:52 [facility] ED Fall Risk Assessment (Adult) History of falling in the last 3 months, vc1 including since admission No falls in past 3 months (0 pts) Confusion or Disorientation Yes (5 pts) Intoxicated or Sedated No (0 pts) Impaired Gait No (0 pts) Mobility Assist Device Used No (0 pt) Altered Elimination No (0 pt) Score/Fall Risk Level 3 or more points = High Risk Oriented to surroundings, Maintained a safe environment, Educated pt \\T\\ family on fall prevention, incl call for assistance when getting out of bed. Abuse screen: Denies threats or abuse. Nutritional screening: No deficits noted. Tuberculosis screening: No symptoms or risk factors identified. Assessment: 23:47 General: Appears uncomfortable, Behavior is cooperative, anxious. Pain: Denies pain. ha1 Neuro: Level of Consciousness is awake, alert, obeys commands, Oriented to person, place, time, situation. Neuro: Reports suicidal ideations. Cardiovascular: Heart tones S1 S2 present Capillary refill < 3 seconds Patient's skin is warm and dry. Respiratory: Airway is patent Respiratory effort is even, unlabored, Respiratory pattern is regular, symmetrical. GI: Abdomen is flat, non-distended, Bowel sounds present X 4 quads. : No signs and/or symptoms were reported regarding the genitourinary system. Derm: Skin is pink, warm \\T\\ dry. Musculoskeletal: Circulation, motion, and sensation intact. Range of motion: intact in all extremities. 07/30 00:45 Reassessment: Patient and/or family updated on plan of care and expected duration. Pain ha1 level reassessed. Patient is alert, oriented x 3, equal unlabored respirations, skin warm/dry/pink. 01:45 Reassessment: Patient and/or family updated on plan of care and expected duration. Pain ha1 level reassessed. Patient is alert, oriented x 3, equal unlabored respirations, skin warm/dry/pink. 02:45 Reassessment: eyes closed. Respiratory: Airway is patent Respiratory effort is even, ha1 unlabored, Respiratory pattern is regular, symmetrical. 04:30 Reassessment: eyes closed. Respiratory: Airway is patent Respiratory effort is even, ha1 unlabored, Respiratory pattern is regular, symmetrical. 05:30 Reassessment: eyes closed. Respiratory: Airway is patent Respiratory effort is even, ha1 unlabored, Respiratory pattern is regular, symmetrical. 06:29 Reassessment: eyes closed. Respiratory: Airway is patent Respiratory effort is even, ha1 unlabored, Respiratory pattern is regular, symmetrical. 07:24 Reassessment: Patient appears in no apparent distress at this time. No changes from ko1 previously documented assessment. Patient and/or family updated on plan of care and expected duration. Pain level reassessed. Patient is alert, oriented x 3, equal unlabored respirations, skin warm/dry/pink. Patient denies pain at this time. 08:30 Reassessment: Patient appears in no apparent distress at this time. No changes from ko1 previously documented assessment. Patient and/or family updated on plan of care and expected duration. Pain level reassessed. Patient is alert, oriented x 3, equal unlabored respirations, skin warm/dry/pink. 09:34 Reassessment: Patient appears in no apparent distress at this time. No changes from ko1 previously documented assessment. Patient and/or family updated on plan of care and expected duration. Pain level reassessed. Patient is alert, oriented x 3, equal unlabored respirations, skin warm/dry/pink. 10:21 Reassessment: Patient appears in no apparent distress at this time. No changes from ko1 previously documented assessment. Patient and/or family updated on plan of care and expected duration. Pain level reassessed. Patient is alert, oriented x 3, equal unlabored respirations, skin warm/dry/pink. Patient denies pain at this time. 12:15 Reassessment: No changes from previously documented assessment. Patient and/or family ko1 updated on plan of care and expected duration. Pain level reassessed. Patient is alert, oriented x 3, equal unlabored respirations, skin warm/dry/pink. 12:45 Reassessment: Patient appears in no apparent distress at this time. Patient and/or ph family updated on plan of care and expected duration. Pain level reassessed. Pt awake and alert, talking loudly, " I'm being hacked and they are stealing my information.". 14:45 Reassessment: Patient appears in no apparent distress at this time. No changes from ko1 previously documented assessment. Patient and/or family updated on plan of care and expected duration. Pain level reassessed. Patient is alert, oriented x 3, equal unlabored respirations, skin warm/dry/pink. Patient denies pain at this time. 16:28 Reassessment: Patient appears in no apparent distress at this time. No changes from ko1 previously documented assessment. Patient and/or family updated on plan of care and expected duration. Pain level reassessed. 17:16 Reassessment: Report given to Di at [facility], she states their physician will call for koAlysia Hardy to report. Vital Signs: 07/29 23:40 BP 136 / 99; Pulse 104; Resp 18; Temp 97.1; Pulse Ox 100% ; vc1 07/30 03:07 BP 132 / 90; Pulse 100; Resp 18 S; Pulse Ox 100% on R/A; ha1 07:00 BP 100 / 51; Pulse 89; Resp 16; Temp 98.2; Pulse Ox 99% on R/A; kj1 ED Course: 07/29 23:25 Patient arrived in ED. jj6 23:45 Triage completed. vc1 23:46 Arm band placed on right wrist. vc1 23:47 Prabhjot Hairston MD is Attending Physician. rt 23:47 Patient has correct armband on for positive identification. Placed in gown. Bed in low ha1 position. Call light in reach. Side rails up X 1. 07/30 00:11 Lisbeth Power, HERIBERTO is Primary Nurse. ha1 00:50 Acetaminophen Sent. ha1 00:50 Basic Metabolic Panel Sent. ha1 00:50 Hepatic Function Sent. ha1 00:50 Salicylate Sent. ha1 03:14 Pt Evaluated by Zak at [facility]. Pt will be Inpatient. rv1 03:28 Pt Clinical sent to the following facilities for pt Placement; [facility] rv1 behavioral, [facility], [facility], [facility], [facility], [facility], [facility]. 07:24 No provider procedures requiring assistance completed. ko1 09:20 confirmed with [facility] that chart was received. bd 17:52 pt accepted in transfer to [facility] by dr Colón, admin approval by tim Kim. 17:57 IV discontinued, intact, bleeding controlled, No redness/swelling at site. Pressure ko1 dressing applied. Administered Medications: No medications were administered Medication: 17:16 VIS not applicable for this client. ko1 Outcome: 03:09 ER care complete, transfer ordered by MD. rt 18:02 Transferred by ground EMS Transfer form completed. ko1 18:02 Condition: stable 18:02 Discharge instructions given to EMS, Instructed on the need for transfer, Demonstrated understanding of instructions. 19:31 Patient left the ED. nj1 Signatures: Anita Rey Patricia, RN RN Keily Bradley kj1 Nisreen León jj6 Dena Simms RN RN vc1 Lisbeth Power RN RN ha1 Rashmi Haider RN RN ko1 Prabhjot Hairston MD MD rt Villegas, Rebecca rv1 Shweta Cruz RN RN nj1
--- NOTE | 2022-07-30 03:10 | EDPHYS ---
Physician Documentation [facility] Name: Krzysztof Palomino Age: 26 yrs Sex: Male : 1995 Arrival Date: 07/29/2022 Time: 23:24 Bed 17 Private MD: ED Physician Prabhjot Hairston HPI: 07/30 01:06 This 26 yrs old Male presents to ER via Law Enforcement with complaints of Altered rt Mental Status. 01:06 Patient presents to the ED with psychiatric complaint. The patient was recently rt admitted to [facility] for psychiatric services for greater than 1 month. The patient was released yesterday. The patient states that he believes that his phone was hacked causing him to have financial problems. The patient reportedly told his mother that he wished to due to this. He denies any plans for suicide at this time. Denies any homicidal ideation or physical symptoms other than insomnia that has been pre-existing. Symptoms are moderate in severity, no other aggravating or alleviating factors.. Historical: - Allergies: 07/29 23:45 BEE STINGS; vc1 - Home Meds: 23:45 Depakote 500 mg Oral TbEC 3 tabs nightly [Active]; hydroxyzine HCl 50 mg Oral tab 1 tab vc1 q 6 hrs prn [Active]; Risperdal 1 mg in the am and 2 mg in the pm Oral [Active]; Zyprexa 10 mg Oral tab 2 tabs nightly [Active]; - PMHx: 23:45 ADD/ADHD; Anxiety; Bipolar disorder; PTSD; vc1 - PSHx: 23:45 None; vc1 - Immunization history:: Client reports having NOT received the Covid vaccine. - Social history:: Smoking status: Patient/guardian denies using tobacco, Stopped _ months ago 1. - Family history:: not pertinent. ROS: 07/30 01:06 Constitutional: Negative for fever, chills, and weight loss, Cardiovascular: Negative rt for chest pain, palpitations, and edema, Respiratory: Negative for shortness of breath, cough, wheezing, and pleuritic chest pain, Abdomen/GI: Negative for abdominal pain, nausea, vomiting, diarrhea, and constipation, MS/Extremity: Negative for injury and deformity, Skin: Negative for injury, rash, and discoloration, Neuro: Negative for headache, weakness, numbness, tingling, and seizure. Psych: Positive for insomnia, suicidal ideation. Exam: 01:06 Constitutional: This is a well developed, well nourished patient who is awake, alert, rt and in no acute distress. Head/Face: Normocephalic, atraumatic. Chest/axilla: Normal chest wall appearance and motion. Nontender with no deformity. No lesions are appreciated. Cardiovascular: Regular rate and rhythm with a normal S1 and S2. No gallops, murmurs, or rubs. Normal PMI, no JVD. No pulse deficits. Respiratory: Lungs have equal breath sounds bilaterally, clear to auscultation and percussion. No rales, rhonchi or wheezes noted. No increased work of breathing, no retractions or nasal flaring. Abdomen/GI: Soft, non-tender, with normal bowel sounds. No distension or tympany. No guarding or rebound. No evidence of tenderness throughout. MS/ Extremity: Pulses equal, no cyanosis. Neurovascular intact. Full, normal range of motion. Neuro: Awake and alert, GCS 15, oriented to person, place, time, and situation. Cranial nerves II-XII grossly intact. Motor strength 5/5 in all extremities. Sensory grossly intact. Cerebellar exam normal. Normal gait. Vital Signs: 07/29 23:40 BP 136 / 99; Pulse 104; Resp 18; Temp 97.1; Pulse Ox 100% ; vc1 07/30 03:07 BP 132 / 90; Pulse 100; Resp 18 S; Pulse Ox 100% on R/A; ha1 07:00 BP 100 / 51; Pulse 89; Resp 16; Temp 98.2; Pulse Ox 99% on R/A; kj1 MDM: 07/29 23:48 Patient medically screened. rt 07/30 03:09 Differential Diagnosis: Suicidal ideation, intoxication, adjustment disorder. Data rt reviewed: vital signs, nurses notes, lab test result(s). Consideration of Admission/Observation After discussion with [facility], recommends inpatient care. Counseling: I had a detailed discussion with the patient and/or guardian regarding: the historical points, exam findings, and any diagnostic results supporting the discharge/admit diagnosis, lab results, the need to transfer to another facility. 07/29 23:55 Order name: Acetaminophen; Complete Time: 00:58 rt 07/29 23:55 Order name: Basic Metabolic Panel; Complete Time: 00:58 rt 07/29 23:55 Order name: CBC with Diff; Complete Time: 00:58 rt 07/29 23:55 Order name: ETOH Level; Complete Time: 00:58 rt 07/29 23:55 Order name: Hepatic Function; Complete Time: 00:58 rt 07/29 23:55 Order name: PT-INR; Complete Time: 00:58 rt 07/29 23:55 Order name: Ptt, Activated; Complete Time: 00:58 rt 07/29 23:55 Order name: Salicylate; Complete Time: 01:03 rt 07/29 23:55 Order name: Urinalysis w/ reflexes; Complete Time: 00:58 rt 07/29 23:55 Order name: Urine Drug Screen; Complete Time: 00:58 rt 07/30 07:11 Order name: Diet Finger Food; Complete Time: 07:12 ko1 07/30 09:48 Order name: Diet Finger Food; Complete Time: 09:49 ko1 07/30 16:38 Order name: Diet Finger Food; Complete Time: 16:39 tm3 07/29 23:55 Order name: IV Saline Lock; Complete Time: 00:50 rt 07/29 23:55 Order name: Labs collected and sent; Complete Time: 00:50 rt 07/29 23:55 Order name: Suicide Screening ([place]); Complete Time: 00:50 rt Administered Medications: No medications were administered Disposition Summary: 07/30/22 03:09 Transfer Ordered Transfer Location: [facility] Facility rt Reason: Higher level of care rt Condition: Serious rt Problem: an acute exacerbation rt Symptoms: are unchanged rt Accepting Physician: (07/30/22 19:31) nj1 Diagnosis - Suicidal ideations rt Discharge Instructions: - Discharge Summary Sheet rv1 Forms: - Medication Reconciliation Form rt - SBAR form rv1 Signatures: Dispatcher [employer] EDMS Dena Simms RN RN vc1 Prabhjot Hairston MD MD rt Shweta Cruz RN RN nj1 Corrections: (The following items were deleted from the chart) 19:31 03:09 rt nj1
[2022-07-30 20:00] VITALS: BP 100/51; TEMP 98.2; O2SAT 99
== END 2022-07-30 19:31 ==
LOC: ER 23:24
DX: R45.851 Suicidal ideations (principal); G47.00 Insomnia, unspecified; Z91.030 Bee allergy status
CPT/HCPCS: 36415; 80048; 80076; 80307; 81003; 85025; 85610; 85730; G0480